=== PATIENT | male | born 1960 | race Caucasian/White ===

== ENCOUNTER 2018-08-06 14:47 | Inpatient (IN) ==
[2018-08-06] MEDS ORDERED: MethylPREDNISolone Sod Succinate Inj 125 MG/2 ML Vial IV.PUSH ONE (15:00)
[2018-08-06] MEDS ORDERED: RESP: Racemic Epinephrine 2.25% 0.5 ML Neb NEB ONE (15:04)
--- NOTE | 2018-08-06 15:09 | ED ---
HPI General Chief complaint: Dental/Oral Stated complaint: Swollen throat sent from urgent care Time Seen by Provider: 08/06/18 14:50 History of Present Illness HPI narrative: Patient is a 58-year-old male with no significant past medical history presented to the emergency room for sore throat, swollen thumb, unable to swallow saliva. Patient stated that 4 days ago had mild sore throat, did not take any medications. Yesterday was evaluated by physician and cefdinir given. Patient stated before she started taking antibiotic swollen difficult to swallow. Today patient feels that she is swelling and pain is worsens. Has mild drooling, unable to swallow saliva, tongue is swollen, unable to open wide. Patient complain of difficulty breathing not in respiratory distress at this time. Anesthesia and ENT called for consult. Related Data Home Medications Medication Instructions Recorded Confirmed cefdinir 300 mg PO Q12H 08/06/18 08/06/18 Allergies Allergy/AdvReac Type Severity Reaction Status Date / Time No Known Allergies Allergy Verified 08/06/18 15:20 Review of Systems ROS: all other systems reviewed are negative ENT Reports mouth pain, Reports sore throat, Reports throat swelling and Reports tongue swelling PMFSH Surgical History Surgical History No history of previous surgery (Acute) Social History Social History Substance History: No History of Abuse Second Hand Smoke Exposure: Yes Smoking Status: Current every day smoker Tobacco Type: Cigarettes How Often Do You Have a Drink Containing Alcohol: 2 to 3 times a week Recent Travel in [facility] within the Last 8 Weeks: No Recent Out of Country Travel within the Last 8 Weeks: No Exam Narrative Exam Narrative: GENERAL: 58-year-old male in mild respiratory distress. SKIN: Focused skin assessment warm/dry. HEAD: Atraumatic. Normocephalic. EYES: Pupils equal and round. No scleral icterus. No injection or drainage. ENT: Patient has sore throat, unable to visualize posterior oropharynx due to mobility of the patient to open the mouth, tongue is enlarged, patient has tenderness over his mandible and anterior neck. NECK: Trachea midline. No JVD. CARDIOVASCULAR: Regular rate and rhythm. No murmur appreciated. RESPIRATORY: No accessory muscle use. Clear to auscultation. Breath sounds equal bilaterally. GASTROINTESTINAL: Abdomen soft, non-tender, nondistended. Hepatic and splenic margins not palpable. MUSCULOSKELETAL: No obvious deformities. No clubbing. No cyanosis. No edema. NEUROLOGICAL: Awake and alert. No obvious cranial nerve deficits. Motor grossly within normal limits. Normal speech. PSYCHIATRIC: Appropriate mood and affect; insight and judgment normal. Course Initial Documented Vital Signs Temperature 99.3 F 08/06/18 14:55 Pulse Rate 107 H 08/06/18 14:55 Respiratory Rate 18 08/06/18 14:55 Blood Pressure 151/69 H 08/06/18 14:55 Pulse Oximetry 98 08/06/18 14:55 Last Documented Vital Signs Temperature 97.7 F 08/07/18 01:00 Pulse Rate 88 08/07/18 07:00 Respiratory Rate 22 08/07/18 07:00 Blood Pressure 119/60 08/07/18 07:00 Pulse Oximetry 95 08/07/18 07:00 Critical Care Time Critical Care Time: Yes Total Critical Care Time: 35 Attestation: Aggregate critical care time was [-] minutes. Time to perform other separately billable procedures was not included in the critical care time. My time did not include minutes spent treating any other patients simultaneously or on activities that did not directly contribute to the patient's treatment. The services I provided to this patient were to treat and/or prevent clinically significant deterioration that could result in: [-Please discuss with anesthesia and ENT, airway treatment with epinephrine , racemic epinephrine, Solu-Medrol given.] I provided critical care services requiring my management, as noted below: Chart data review, documentation time, medication orders and management, vital sign assessments/reviewing monitor data, ordering and reviewing lab tests, ordering and interpreting/reviewing x-rays and diagnostic studies, care of the patient and discussion of the patient with the admitting physicians. Sign Out Sign Out Data: Patient Sign Out occurred on 08/06/18 at 16:34. Patient's care was discussed, and care was transferred from Rishabh Almendarez DO to Michael Sanchez MD. Sign Out Comment: Patient is a 58-year-old male with no significant past medical history, presented to emergency room for tongue swelling, sore throat, mandible and anterior neck pain, drooling for 2 days. Patient barely can open his mouth, airway is patent at this time. Labs and CAT scans are pending, case was signed out to Dr. Sanchez for further evaluation and treatment. Last updated by Rishabh Almendarez DO at 08/06/18 16:04 Post-Handoff Eval: The patient was initially evaluated by the previous provider and signed out to me at around 4:00 PM at the beginning of my shift pending CT soft tissue neck and disposition. See his note for further details. This is a 58-year-old male who has had 4 days of worsening sore throat and swelling. Went to an urgent care facility yesterday and was started on an antibiotic for strep throat. Patient reported that his symptoms have not improved and actually worsened. On arrival the patient presented with significant tongue and pharyngeal edema with hoarse phonation and drooling. He was provided Solu-Medrol, IM epinephrine, racemic epinephrine, and clindamycin by the previous provider. He was also slightly tachycardic and has a low-grade fever. He was evaluated by the on-call anesthesiologist at the bedside who reports that she would be unable to intubate the patient. On my assessment the patient reports that the swelling feels slightly improved. He is sitting up in the stretcher and in no apparent distress. He does have significant tongue and sublingual edema with hoarse phonation. He is able to swallow some secretions, however he states it is painful. Labs reviewed by me shows slight leukocytosis of 15.8. CT soft tissue neck: CONCLUSION: 1. Asymmetry with increased soft tissue density in the left tonsillar fossa region. This area should be evaluated for possible mass. 2. Prominent lymph nodes around the upper parotid regions bilaterally being more prominent on the left. 3. Degenerative change in the cervical spine. Case discussed with software client architect Dr. Morris who will admit the patient to his service. Because the patient has a potential for airway compromise/ decompensation, he will be transported to the main hospital ICU. The patient was made aware of all findings and plan for emergent transport to our [facility]. Medical Decision Making MDM Narrative Medical decision making narrative: 1520: Labs, CAT scan ordered. Epinephrine, racemic epinephrine, Solu-Medrol is given. Patient was evaluated by anesthesia and bedside, at this time airway is patent with mild difficulty of breathing. Case discussed with Dr. Motley by phone, I ask him to evaluate the patient for possible tracheostomy. I was told that patient needs to have imaging and blood work done first. Medical Screen Exam Complete: Yes Emergency Medical Condition: Yes Lab Data Result diagrams: 08/07/18 04:10 08/07/18 04:10 Lab Results 08/06/18 08/06/18 08/06/18 Range/Units 15:00 15:00 15:00 CBC w Diff Auto diff final WBC 15.8 H (4.0-11.0) th/mm3 RBC 4.82 (4.50-5.90) mil/mm3 Hgb 14.7 (13.0-17.0) gm/dL Hct 43.2 (39.0-51.0) % MCV 89.6 (80.0-100.0) fL MCH 30.4 (27.0-34.0) pg MCHC 34.0 (32.0-36.0) % RDW 14.9 (11.6-17.2) % Plt Count 149 L (150-450) th/mm3 MPV 8.7 (7.0-11.0) fL Neut % (Auto) 76.0 H (16.0-70.0) % Lymph % (Auto) 10.9 (9.0-44.0) % [place] % (Auto) 12.8 H (0.0-8.0) % Eos % (Auto) 0.1 (0.0-4.0) % Baso % (Auto) 0.2 (0.0-2.0) % Neut # (Auto) 12.1 H (1.8-7.7) th/mm3 Lymph # (Auto) 1.7 (1.0-4.8) th/mm3 [place] # (Auto) 2.0 H (0.0-0.9) th/mm3 Eos # (Auto) 0.0 (0.0-0.4) th/mm3 Baso # (Auto) 0.0 (0.0-0.2) th/mm3 WBC Differential . Differential Comment . Puncture Site Patient Temperature O2 Saturation (90-100) % ABG pH (7.380-7.420) ABG pCO2 (38-42) mmHg ABG pO2 (61-120) mmHg ABG HCO3 (22-26) mmol/L ABG O2 Content (12.0-20.0) Vol % ABG Base Excess (-2-2) mmol/L ABG Methemoglobin (0-2) % David Test Hemoglobin (12.0-16.0) G/DL Carboxyhemoglobin (0-4) % O2 Delivery Device Liter Flow L/M Critical Value Sodium 137 (136-145) meq/L Potassium 3.4 L (3.5-5.1) meq/L Chloride 102 (98-107) meq/L Carbon Dioxide 28.7 (21.0-32.0) meq/L Anion Gap 6 (5-15) meq/L BUN 14 (7-18) mg/dL Creatinine 0.91 (0.60-1.30) mg/dL Estimated GFR 85 L (>89) mL/min POC Glucose (68-110) mg/dl Random Glucose 92 (74-106) mg/dL Lactic Acid 1.5 (0.4-2.0) mmol/L Calcium 9.2 (8.5-10.1) mg/dL Phosphorus (2.5-4.9) mg/dL Magnesium 2.0 (1.5-2.5) mg/dL Total Bilirubin 3.7 H (0.2-1.0) mg/dL AST 33 (15-37) U/L ALT 52 (12-78) U/L Alkaline Phosphatase 110 (45-117) U/L Total Protein 9.1 H (6.4-8.2) g/dL Albumin 3.8 (3.4-5.0) g/dL Urine Color (Yellw/Straw) Urine Clarity (Clear) Urine pH (5.0-8.5) Ur Specific [place] (1.002-1.035) Urine Protein (Neg-Trace) mg/dL Urine Glucose (UA) (Negative) mg/dL Urine Ketones (Negative) mg/dL Urine Occult Blood (Negative) Urine Nitrate (Negative) Urine Bilirubin (Negative) Urine Ictotest (Negative) Urine Urobilinogen (Less than 2) mg/dL Ur Leukocyte Esterase (Negative) Urine WBC (0-5) /hpf Ur Squamous Epith Cells (0-5) /hpf Hyaline Casts (0-3) /lpf Granular Casts (None) /lpf Micro UA Comment Ur Microscopic Review Urine Culture Comments Nasal Screen MRSA (PCR) (Negative) 08/06/18 08/06/18 08/06/18 Range/Units 15:10 15:55 17:15 CBC w Diff WBC (4.0-11.0) th/mm3 RBC (4.50-5.90) mil/mm3 Hgb (13.0-17.0) gm/dL Hct (39.0-51.0) % MCV (80.0-100.0) fL MCH (27.0-34.0) pg MCHC (32.0-36.0) % RDW (11.6-17.2) % Plt Count (150-450) th/mm3 MPV (7.0-11.0) fL Neut % (Auto) (16.0-70.0) % Lymph % (Auto) (9.0-44.0) % [place] % (Auto) (0.0-8.0) % Eos % (Auto) (0.0-4.0) % Baso % (Auto) (0.0-2.0) % Neut # (Auto) (1.8-7.7) th/mm3 Lymph # (Auto) (1.0-4.8) th/mm3 [place] # (Auto) (0.0-0.9) th/mm3 Eos # (Auto) (0.0-0.4) th/mm3 Baso # (Auto) (0.0-0.2) th/mm3 WBC Differential Differential Comment Puncture Site Right radial Patient Temperature 98.6 O2 Saturation 96 (90-100) % ABG pH 7.43 H (7.380-7.420) ABG pCO2 34 L (38-42) mmHg ABG pO2 101 (61-120) mmHg ABG HCO3 22 (22-26) mmol/L ABG O2 Content 19.8 (12.0-20.0) Vol % ABG Base Excess -1.5 (-2-2) mmol/L ABG Methemoglobin 1.2 (0-2) % David Test Present Hemoglobin 14.7 (12.0-16.0) G/DL Carboxyhemoglobin 1.5 (0-4) % O2 Delivery Device Nasal cannula Liter Flow 2.00 L/M Critical Value No Sodium (136-145) meq/L Potassium (3.5-5.1) meq/L Chloride (98-107) meq/L Carbon Dioxide (21.0-32.0) meq/L Anion Gap (5-15) meq/L BUN (7-18) mg/dL Creatinine (0.60-1.30) mg/dL Estimated GFR (>89) mL/min POC Glucose 91 (68-110) mg/dl Random Glucose (74-106) mg/dL Lactic Acid (0.4-2.0) mmol/L Calcium (8.5-10.1) mg/dL Phosphorus (2.5-4.9) mg/dL Magnesium (1.5-2.5) mg/dL Total Bilirubin (0.2-1.0) mg/dL AST (15-37) U/L ALT (12-78) U/L Alkaline Phosphatase (45-117) U/L Total Protein (6.4-8.2) g/dL Albumin (3.4-5.0) g/dL Urine Color Yellow (Yellw/Straw) Urine Clarity Clear (Clear) Urine pH 6.0 (5.0-8.5) Ur Specific [place] Less/equal 1.005 (1.002-1.035) Urine Protein Negative (Neg-Trace) mg/dL Urine Glucose (UA) Negative (Negative) mg/dL Urine Ketones 15 H (Negative) mg/dL Urine Occult Blood Negative (Negative) Urine Nitrate Negative (Negative) Urine Bilirubin Small H (Negative) Urine Ictotest Positive H (Negative) Urine Urobilinogen 4.0 H (Less than 2) mg/dL Ur Leukocyte Esterase Negative (Negative) Urine WBC 0-5 (0-5) /hpf Ur Squamous Epith Cells 0-5 (0-5) /hpf Hyaline Casts 11-30 H (0-3) /lpf Granular Casts 4-10 H (None) /lpf Micro UA Comment Culture not ind Ur Microscopic Review Microscopic reviewed Urine Culture Comments Culture not ind Nasal Screen MRSA (PCR) (Negative) 08/06/18 08/07/18 08/07/18 Range/Units 18:45 00:27 04:10 CBC w Diff WBC 5.7 D (4.0-11.0) th/mm3 RBC 4.06 L (4.50-5.90) mil/mm3 Hgb 12.7 L D (13.0-17.0) gm/dL Hct 36.1 L (39.0-51.0) % MCV 89.0 (80.0-100.0) fL MCH 31.2 (27.0-34.0) pg MCHC 35.1 (32.0-36.0) % RDW 15.2 (11.6-17.2) % Plt Count 102 L D (150-450) th/mm3 MPV 8.7 (7.0-11.0) fL Neut % (Auto) 86.7 H (16.0-70.0) % Lymph % (Auto) 9.3 (9.0-44.0) % [place] % (Auto) 3.9 (0.0-8.0) % Eos % (Auto) 0.0 (0.0-4.0) % Baso % (Auto) 0.1 (0.0-2.0) % Neut # (Auto) 5.0 (1.8-7.7) th/mm3 Lymph # (Auto) 0.5 L (1.0-4.8) th/mm3 [place] # (Auto) 0.2 (0.0-0.9) th/mm3 Eos # (Auto) 0.0 (0.0-0.4) th/mm3 Baso # (Auto) 0.0 (0.0-0.2) th/mm3 WBC Differential . Differential Comment Auto diff final Puncture Site Patient Temperature O2 Saturation (90-100) % ABG pH (7.380-7.420) ABG pCO2 (38-42) mmHg ABG pO2 (61-120) mmHg ABG HCO3 (22-26) mmol/L ABG O2 Content (12.0-20.0) Vol % ABG Base Excess (-2-2) mmol/L ABG Methemoglobin (0-2) % David Test Hemoglobin (12.0-16.0) G/DL Carboxyhemoglobin (0-4) % O2 Delivery Device Liter Flow L/M Critical Value Sodium (136-145) meq/L Potassium (3.5-5.1) meq/L Chloride (98-107) meq/L Carbon Dioxide (21.0-32.0) meq/L Anion Gap (5-15) meq/L BUN (7-18) mg/dL Creatinine (0.60-1.30) mg/dL Estimated GFR (>89) mL/min POC Glucose 165 H (68-110) mg/dl Random Glucose (74-106) mg/dL Lactic Acid (0.4-2.0) mmol/L Calcium (8.5-10.1) mg/dL Phosphorus (2.5-4.9) mg/dL Magnesium (1.5-2.5) mg/dL Total Bilirubin (0.2-1.0) mg/dL AST (15-37) U/L ALT (12-78) U/L Alkaline Phosphatase (45-117) U/L Total Protein (6.4-8.2) g/dL Albumin (3.4-5.0) g/dL Urine Color (Yellw/Straw) Urine Clarity (Clear) Urine pH (5.0-8.5) Ur Specific [place] (1.002-1.035) Urine Protein (Neg-Trace) mg/dL Urine Glucose (UA) (Negative) mg/dL Urine Ketones (Negative) mg/dL Urine Occult Blood (Negative) Urine Nitrate (Negative) Urine Bilirubin (Negative) Urine Ictotest (Negative) Urine Urobilinogen (Less than 2) mg/dL Ur Leukocyte Esterase (Negative) Urine WBC (0-5) /hpf Ur Squamous Epith Cells (0-5) /hpf Hyaline Casts (0-3) /lpf Granular Casts (None) /lpf Micro UA Comment Ur Microscopic Review Urine Culture Comments Nasal Screen MRSA (PCR) Not detected (Negative) 08/07/18 Range/Units 04:10 CBC w Diff WBC (4.0-11.0) th/mm3 RBC (4.50-5.90) mil/mm3 Hgb (13.0-17.0) gm/dL Hct (39.0-51.0) % MCV (80.0-100.0) fL MCH (27.0-34.0) pg MCHC (32.0-36.0) % RDW (11.6-17.2) % Plt Count (150-450) th/mm3 MPV (7.0-11.0) fL Neut % (Auto) (16.0-70.0) % Lymph % (Auto) (9.0-44.0) % [place] % (Auto) (0.0-8.0) % Eos % (Auto) (0.0-4.0) % Baso % (Auto) (0.0-2.0) % Neut # (Auto) (1.8-7.7) th/mm3 Lymph # (Auto) (1.0-4.8) th/mm3 [place] # (Auto) (0.0-0.9) th/mm3 Eos # (Auto) (0.0-0.4) th/mm3 Baso # (Auto) (0.0-0.2) th/mm3 WBC Differential Differential Comment Puncture Site Patient Temperature O2 Saturation (90-100) % ABG pH (7.380-7.420) ABG pCO2 (38-42) mmHg ABG pO2 (61-120) mmHg ABG HCO3 (22-26) mmol/L ABG O2 Content (12.0-20.0) Vol % ABG Base Excess (-2-2) mmol/L ABG Methemoglobin (0-2) % David Test Hemoglobin (12.0-16.0) G/DL Carboxyhemoglobin (0-4) % O2 Delivery Device Liter Flow L/M Critical Value Sodium 142 (136-145) meq/L Potassium 3.5 (3.5-5.1) meq/L Chloride 110 H D (98-107) meq/L Carbon Dioxide 25.8 (21.0-32.0) meq/L Anion Gap 6 (5-15) meq/L BUN 17 (7-18) mg/dL Creatinine 0.73 (0.60-1.30) mg/dL Estimated GFR Greater than 89 (>89) mL/min POC Glucose (68-110) mg/dl Random Glucose 177 H (74-106) mg/dL Lactic Acid (0.4-2.0) mmol/L Calcium 8.5 (8.5-10.1) mg/dL Phosphorus 2.3 L (2.5-4.9) mg/dL Magnesium 2.1 (1.5-2.5) mg/dL Total Bilirubin 1.4 H (0.2-1.0) mg/dL AST 22 (15-37) U/L ALT 40 (12-78) U/L Alkaline Phosphatase 86 (45-117) U/L Total Protein 7.6 D (6.4-8.2) g/dL Albumin 3.0 L D (3.4-5.0) g/dL Urine Color (Yellw/Straw) Urine Clarity (Clear) Urine pH (5.0-8.5) Ur Specific [place] (1.002-1.035) Urine Protein (Neg-Trace) mg/dL Urine Glucose (UA) (Negative) mg/dL Urine Ketones (Negative) mg/dL Urine Occult Blood (Negative) Urine Nitrate (Negative) Urine Bilirubin (Negative) Urine Ictotest (Negative) Urine Urobilinogen (Less than 2) mg/dL Ur Leukocyte Esterase (Negative) Urine WBC (0-5) /hpf Ur Squamous Epith Cells (0-5) /hpf Hyaline Casts (0-3) /lpf Granular Casts (None) /lpf Micro UA Comment Ur Microscopic Review Urine Culture Comments Nasal Screen MRSA (PCR) (Negative) Imaging Data Radiologist's impression: Chest X-Ray 08/06/18 14:58 CONCLUSION: 1. No acute abnormality or significant interval change. Soft Tissue Neck CT 08/06/18 15:02 CONCLUSION: 1. Asymmetry with increased soft tissue density in the left tonsillar fossa region. This area should be evaluated for possible mass. 2. Prominent lymph nodes around the upper parotid regions bilaterally being more prominent on the left. 3. Degenerative change in the cervical spine. Discharge Plan Discharge Disposition Patient Disposition: ED Admit(ED Internal Use Only) Discharge Condition Condition: Fair Discharge Order Discharge Orders: ED Use Only Admit Order (Routine); Ordered 08/06/18 Ordered By: Michael Sanchez Discharge Details Diagnosis: Pharyngitis, Angioedema Physicians Team ED Provider: Michael Sanchez Primary Care Provider: Primary Care Amarilis,Kerry Attending Provider: Deuce Morris Other Providers: Ramirez Motley ; Pari Díaz Status ED Status: Left Department Discharge Information Discharge Date/Time: 08/06/18 18:09
[2018-08-06] MEDS ORDERED: Sod Chloride 0.9% Inj 1,000 ML IV.SIG SCH (15:15)
[2018-08-06 15:16] LABS: ABG Base Excess -1.5 mmol/L (-2-2); ABG PCO2 34 mmHg (38-42); ABG PO2 101 mmHg (61-120)
[2018-08-06 15:18] LABS: Baso % (Auto) 0.2 % (0.0-2.0); Eos % (Auto) 0.1 % (0.0-4.0); Hematocrit 43.2 % (39.0-51.0); Hemoglobin 14.7 gm/dL (13.0-17.0); Lymph # (Auto) 1.7 th/mm3 (1.0-4.8); Lymph % (Auto) 10.9 % (9.0-44.0); Mean Corpuscular Hemoglobin 30.4 pg (27.0-34.0); Mean Corpuscular Volume 89.6 fL (80.0-100.0); Mean Platelet Volume 8.7 fL (7.0-11.0); Mono % (Auto) 12.8 % (0.0-8.0); Neut # (Auto) 12.1 th/mm3 (1.8-7.7); Platelet Count 149 th/mm3 (150-450); Red Blood Count 4.82 mil/mm3 (4.50-5.90); Red Cell Distribution Width 14.9 % (11.6-17.2); White Blood Count 15.8 th/mm3 (4.0-11.0)
[2018-08-06 15:26] LABS: Chloride 102 meq/L (98-107); Potassium 3.4 meq/L (3.5-5.1); Sodium 137 meq/L (136-145)
[2018-08-06 15:29] LABS: Albumin 3.8 g/dL (3.4-5.0); Anion Gap 6 meq/L (5-15); Calcium 9.2 mg/dL (8.5-10.1); Carbon Dioxide 28.7 meq/L (21.0-32.0)
[2018-08-06 15:30] LABS: Blood Urea Nitrogen 14 mg/dL (7-18); Glucose,Random 92 mg/dL (74-106)
--- NOTE | 2018-08-06 15:32 | XR ---
EXAM DATE: 08/06/2018 3:19 PM EST AGE/SEX: 58 years / Male INDICATIONS: Sore throat x 2-3 days but throat is swollen today & unable to swallow saliva. CLINICAL DATA: This is the patient's initial encounter. Patient reports that signs and symptoms have been present for 3 days and indicates a pain score of 0/10. MEDICAL/SURGICAL HISTORY: . Unable to obtain. . Unable to obtain. COMPARISON: [facility] [place], 08/13/2015. . FINDINGS: No new focal pleural or parenchymal opacities. The cardiomediastinal contours are unremarkable. Osse ous structures are intact. CONCLUSION: 1. No acute abnormality or significant interval change. Electronically signed by: Edison Galvez MD 08/06/2018 3:31 PM EST
[2018-08-06 15:33] LABS: Alanine Aminotransferase 52 U/L (12-78); Aspartate Aminotransferase 33 U/L (15-37); Glomerular Filtration Rate 85 mL/min (>89)
[2018-08-06 15:34] LABS: Total Protein 9.1 g/dL (6.4-8.2)
[2018-08-06 15:35] LABS: Alkaline Phosphatase 110 U/L (45-117)
--- NOTE | 2018-08-06 16:54 | CT ---
EXAM DATE: 08/06/2018 4:45 PM EST AGE/SEX: 58 years / Male INDICATIONS: Swollen throat. CLINICAL DATA: This is the patient's initial encounter. Patient reports that signs and symptoms have been present for 4 - 6 days and indicates a pain score of 0/10. MEDICAL/SURGICAL HISTORY: None. None. RADIATION DOSE: 11.97 CTDI (mGy) COMPARISON: No prior exams available for comparison. TECHNIQUE: Helical acquisition was performed using a multirow detector CT scanner during the adminis tration of 75 ml Omnipaque 350 (iohexol) nonionic water-soluble contrast as a single exam dose. Usi ng automated exposure control and adjustment of the mA and/or kV according to patient size, radiation dose was kept as low as reasonably achievable to obtain optimal diagnostic quality images. DICOM fo rmat image data is available electronically for review and comparison. FINDINGS: Nasopharynx: The nasopharyngeal airway has a normal configuration. No mucosal thickening or mass is seen. Oropharynx: There is asymmetry with increased soft tissue density in the left tonsillar fossa region . This area should be directly inspected. Larynx: The supraglottic, glottic, and infraglottic structures are intact. Parapharyngeal: The parapharyngeal space is intact. Salivary Glands: The parotid and submandibular glands are intact. Lymph Nodes: A mildly prominent lymph nodes are seen around the upper parotid regions bilaterally b eing somewhat more prominent on the left. The most prominent lymph node is seen in the left digastri c region measuring 1.0 x 0.8 cm. Thyroid: Homogeneous enhancement without evidence of nodule. Bones: Degenerative change in the cervical spine. CONCLUSION: 1. Asymmetry with increased soft tissue density in the left tonsillar fossa region. This area should be evaluated for possible mass. 2. Prominent lymph nodes around the upper parotid regions bilaterally being more prominent on the le ft. 3. Degenerative change in the cervical spine. Electronically signed by: John Joshi MD 08/06/2018 4:53 PM EST
[2018-08-06 17:21] LABS: Clarity,Urine Clear (Clear); Color,Urine Yellow (Yellw/Straw); Glucose,Urine (UA) Negative (Negative); Leukocyte Esterase,Urine Negative (Negative); Nitrite,Urine Negative (Negative); Specific Gravity,Urine Less/Equal 1.005 (1.002-1.035)
[2018-08-06 17:47] LABS: Bilirubin,Urine Small (Negative); Ictotest,Urine Positive (Negative)
[2018-08-06 17:48] LABS: Squamous Epithelial Cell,Urine 0-5 /hpf (0-5); WBC,Urine 0-5 /hpf (0-5)
[2018-08-06] MEDS ORDERED: Bisacodyl 10 MG Supp RECTAL PRN (19:46)
[2018-08-06] MEDS ORDERED: Magnesium Sulfate Inj 2 GM in Sodium Chlor 0.9% Inj 96 ML IV.SIG PRN (19:49)
[2018-08-06] MEDS ORDERED: Potassium Chloride 25 MEQ Effervescent Tablet PO PRN (19:49)
[2018-08-06] MEDS ORDERED: Potassium Phosphate Inj 30 MMOL in Sodium Chlor 0.9% Inj 250 ML IV.SIG PRN (19:49)
[2018-08-06] MEDS ORDERED: Potassium Chlor 20 mEq Premix 20 MEQ/100 ML PIGGYBACK IV.SIG PRN ×2 (19:49)
[2018-08-06] MEDS ORDERED: Magnesium Sulfate Inj 4 GM in Sodium Chlor 0.9% Inj 92 ML IV.SIG PRN (19:49)
[2018-08-06] MEDS ORDERED: Potassium Chlor 40 mEq Premix 40 MEQ/100 ML PIGGYBACK IV.SIG PRN ×2 (19:49)
[2018-08-06] MEDS ORDERED: Sodium Phosphate Inj 30 MMOL in Sodium Chlor 0.9% Inj 250 ML IV.SIG PRN (19:49)
[2018-08-06] MEDS ORDERED: Potassium Phosphate 500 MG Soluble Tablet PO PRN ×2 (19:49)
[2018-08-06] MEDS ORDERED: Magnesium Oxide 400 MG Tablet PO PRN (19:49)
[2018-08-06] MEDS ORDERED: Dextrose 50% in Water 50 ML Vial IV.PUSH PRN (20:04)
[2018-08-06] MEDS: Ampicillin/Sulbactam Inj 1,500 MG in Sodium Chloride 0.9% Inj 100 ML IV.SIG SCH (21:12)
[2018-08-06] MEDS: Dextrose 5%/NaCl 0.9% Inj 1,000 ML IV.CONT SCH (21:13)
--- NOTE | 2018-08-06 21:31 | ECG ---
Date Performed: 08/06/2018 Time Performed: 15:23:35 PTAGE: 58 years EKG: Sinus rhythm WITH SHORT GA INTERVAL BORDERLINE ECG PREVIOUS TRACING : 08/02/2015 04.00 Compared to previous tracing, ST changes resolved DOCTOR: Eze Phelan Interpretating Date/Time 08/06/2018 21:30:49
--- NOTE | 2018-08-06 21:35 | MH ---
cc: Justice Paul MD DATE OF ADMISSION: 08/06/2018 HISTORY OF PRESENT ILLNESS: The patient is a 58-year-old, without significant past medical history who initially presented to [place] ED with sore throat that started on Sunday and progressively worsened. The patient took NyQuil without any effects. He also noticed swelling of the tongue, which started Sunday, and voice changes. He also reports shortness of breath and wheezing associated with his symptoms. He is not on any medications at home. He denies any exposure to sick contacts. He denies any chest pain, orthopnea, PND, or edema in lower extremities. Also denies any nausea, vomiting or abdominal pain. The patient was given Cefdinir. He was noted to have mild drooling and was unable to swallow his saliva due to swelling of his tongue. A chest x-ray was obtained, which showed no acute abnormalities. He also had a soft tissue neck CT which showed asymmetry with increased soft tissue density in the left tonsillar fossa region and prominent lymph nodes around the upper parotid regions, in addition to degenerative changes in the cervical spine. There is no evidence of any fever; however, he had a white count of 15.8. The patient was transferred to [facility]. When seen, he was on room air oxygen. His current blood pressure is 114/71 with a pulse of 84. PAST MEDICAL HISTORY: The patient denies any history of hypertension, diabetes mellitus. PAST SURGICAL HISTORY: Unremarkable. SOCIAL HISTORY: He smokes cigarettes, 1 pack a week for 30 years. In addition, he drinks twice a week. ALLERGIES: NO KNOWN DRUG ALLERGIES. MEDICATIONS AT HOME: None. FAMILY HISTORY: Father at age 82 with leukemia. REVIEW OF SYSTEMS: As per HPI. The rest of his review of systems is unremarkable. PHYSICAL EXAMINATION: GENERAL: A 58-year-old male lying in bed, in no acute respiratory distress. VITAL SIGNS: Temperature 99.3, pulse of 84, blood pressure 114/71, saturation 97% on room air. HEENT: Atraumatic, normocephalic. Pupils are equal, round that light and accommodation. Extraocular muscles intact. Conjunctivae pink. Nonicteric sclerae. Oral mucosa within normal. The patient has difficulty opening his mouth wide. The tongue is enlarged and has tenderness over his mandible and anterior neck. NECK: Supple. No JVD, adenopathy or thyromegaly. Trachea in the midline. CARDIAC: Regular rate and rhythm. Normal S1, S2. No murmurs, rubs or gallops noted. PULMONARY: Bilaterally good air entry. No rales or wheezing. ABDOMEN: Soft, nontender, nondistended, positive bowel sounds. EXTREMITIES: No cyanosis, clubbing, edema. NEUROLOGIC: No focal sensory deficit. LABORATORY DATA: Sodium 137, potassium 3.4, chloride 102, CO2 28, BUN 14, creatinine 0.91, glucose of 91. Lactic acid 1.5. AST 33, ALT 52, total bilirubin 3.7, albumin 3.8. Chest x-ray showed no acute abnormalities. Soft tissue neck CT showed asymmetry with increased soft tissue density in the left tonsillar fossa region and prominent lymph nodes around the upper parotid regions bilaterally. IMPRESSION: 1. Angioedema. 2. Asymmetry with increased soft tissue density in the left tonsillar fossa region. 3. Leukocytosis. 4. Hypokalemia. RECOMMENDATIONS: 1. To monitor neuro status closely and avoid any sedatives. 2. Oxygen to maintain sats above 92%. 3. Bronchodilators in the form of DuoNeb every 4 hours plus every 2 hours p.r.n. for shortness of breath. 4. Patient was evaluated by Anesthesia at [place]. In addition, Dr. Majano from ENT was notified by the ED physician. 4. Monitor airway closely and place on Decadron 4 mg IV every 6 hours. 5. Pepcid 20 mg IV every 12 hours. 6. If there is any clinical deterioration, we will proceed with intubation and mechanical ventilation. 7. An ENT evaluation for laryngoscopy and possible biopsy. 8. Monitor heart rate, blood pressure, and maintain MAP greater than 65 mmHg. 9. Monitor renal function, I's and O's and electrolyte replacement per protocol. The patient will need potassium replacement for potassium 3.4. 10. Place on IV fluids, D5 normal saline at 84 mL an hour. 11. Place on empiric antibiotics in the form of Unasyn and monitor for signs of infection, which include fever and WBC. Follow up on blood cultures. 12. Keep n.p.o. for now, and continue with Pepcid 20 mg IV every 12 hours. 13. Sliding scale insulin if needed for glycemic control. 14. Gastrointestinal prophylaxis with Pepcid and DVT prophylaxis with SCDs. 15. Further recommendations will be based on hospital course. MD BILL Brown/rowena , 08:03 PM , 08:16 PM
--- NOTE | 2018-08-06 21:50 | MB ---
cc: Ramirez Motley MD DATE: 08/06/2018 CHIEF COMPLAINT: Dysphagia. HISTORY OF PRESENT ILLNESS: This is a 58-year-old male who presented to the emergency room this afternoon complaining of a 4-day onset of sore throat, unable to tolerate his saliva, with significant pain upon trying to swallow. He was started on IV antibiotics. However, upon my questioning to him, he first noted his sore throat approximately 4 months ago. He had been having a difficult time swallowing for the last month and a half, it has continued to worsen and only over the last few days had it gotten to the point where he was unable to tolerate his secretions and started drooling. He is denying any difficulty breathing. He does report over the last month, his friends have told him that they feel like he is a little louder breather. Of note, the patient does go through a case of beer when he is off from work, he said, and then just drinks a few beers during his work week every day. REVIEW OF SYSTEMS: As per above. PAST MEDICAL HISTORY: Significant for gout, as well as a previous history of spinal meningitis. ALLERGIES: He has no previous surgical history. SOCIAL HISTORY: Daily alcohol use as well as 1 pack per day smoking. PHYSICAL EXAMINATION: GENERAL: The patient is alert and oriented. He is in no acute distress. He does have some difficulty with speaking. Has a hot potato style voice. HEENT: The patient has a enlarged tongue with some fullness to the floor of his mouth. No purulence noted in the floor of the mouth. He has some poor dentition. The tongue is somewhat soft and mobile. The tongue base is very firm with a large firm area and a hard mass appearing to the left base of tongue. Flexible laryngoscopy reveals a patent airway with an exophytic mass in the base of tongue, as well as the epiglottis. No impingement on the airway. NECK: Exam reveals no palpable lymphadenopathy. HEART: Regular rate and rhythm. LUNGS: Clear to auscultation. DIAGNOSTIC DATA: CT scan reviewed. Shows an asymmetric left oropharyngeal mass with significant lymphadenopathy bilaterally, but larger on the left, and the second lymph node in the level 2 lymph node chain. ASSESSMENT AND PLAN: The patient with an oropharyngeal mass as well as lymphadenopathy. This area looks concerning for malignancy, due to the indolent nature of the mass. However, he does have a white count today that does seem that he has a superimposed infection on this process as well. I would recommend IV antibiotics, ultrasound-guided biopsy of the left neck mass, as well as a consultation with general surgery for possible tracheostomy to secure his airway better should this mass continue to enlarge, as well as an infectious disease was consulted for possible onset of Ulysses's angina, as well as Intensive Care Unit monitoring. Thank you for this consultation. Ramirez Motley MD ATT/rowena , 08:49 PM , 08:57 PM
[2018-08-07] MEDS: Ampicillin/Sulbactam Inj 1,500 MG in Sodium Chloride 0.9% Inj 100 ML IV.SIG SCH ×4 (03:44→20:01)
[2018-08-07] MEDS: Insulin NovoLIN Regular Correctional Sugar Inj SQ SCH ×4 (03:45→18:59)
[2018-08-07] MEDS: Famotidine PF Inj 20 MG/2 ML Vial IV.PUSH SCH ×3 (03:45→20:00)
[2018-08-07] MEDS ORDERED: Chlorhexidine Gluconate 2% 1 Pack (2 Cloths) TOPICAL PRN ×2 (04:00)
[2018-08-07 04:39] LABS: Baso % (Auto) 0.1 % (0.0-2.0); Hematocrit 36.1 % (39.0-51.0); Hemoglobin 12.7 gm/dL (13.0-17.0); Lymph # (Auto) 0.5 th/mm3 (1.0-4.8); Lymph % (Auto) 9.3 % (9.0-44.0); Mean Corpuscular HGB Conc 35.1 % (32.0-36.0); Mean Corpuscular Hemoglobin 31.2 pg (27.0-34.0); Mean Platelet Volume 8.7 fL (7.0-11.0); Mono # (Auto) 0.2 th/mm3 (0.0-0.9); Mono % (Auto) 3.9 % (0.0-8.0); Neut % (Auto) 86.7 % (16.0-70.0); Platelet Count 102 th/mm3 (150-450); Red Blood Count 4.06 mil/mm3 (4.50-5.90); Red Cell Distribution Width 15.2 % (11.6-17.2); White Blood Count 5.7 th/mm3 (4.0-11.0)
[2018-08-07 04:55] LABS: Anion Gap 6 meq/L (5-15); Aspartate Aminotransferase 22 U/L (15-37); Blood Urea Nitrogen 17 mg/dL (7-18); Calcium 8.5 mg/dL (8.5-10.1); Carbon Dioxide 25.8 meq/L (21.0-32.0); Chloride 110 meq/L (98-107); Glomerular Filtration Rate Greater Than 89 mL/min (>89); Glucose,Random 177 mg/dL (74-106); Magnesium 2.1 mg/dL (1.5-2.5); Potassium 3.5 meq/L (3.5-5.1); Sodium 142 meq/L (136-145)
[2018-08-07 04:58] LABS: Alanine Aminotransferase 40 U/L (12-78); Alkaline Phosphatase 86 U/L (45-117); Phosphorus 2.3 mg/dL (2.5-4.9); Total Protein 7.6 g/dL (6.4-8.2)
--- NOTE | 2018-08-07 07:48 | P.PNCC ---
Subjective Subjective Remarks/Hospital Course: 08/07: Afebrile .Leukocytosis resolved. Patient expresses better control of saliva this morning, however still noted significant airway edema with voice changes. Patient remains n.p.o.. Objective Vital Signs / I&O: Vital Signs 08/06/18 14:55 08/06/18 15:00 08/06/18 15:17 Temperature 99.3 F Pulse Rate 107 H 99 H 100 H Respiratory Rate 18 19 Blood Pressure 151/69 H Pulse Oximetry 98 98 08/06/18 15:33 08/06/18 15:51 08/06/18 17:12 Temperature Pulse Rate 101 H 97 H 92 H Respiratory Rate 18 18 16 Blood Pressure 139/70 128/66 118/69 Pulse Oximetry 98 97 96 08/06/18 19:45 08/06/18 20:00 08/06/18 20:31 Temperature 98.2 F Pulse Rate 85 86 82 Respiratory Rate 25 H 27 H 18 Blood Pressure 116/77 Pulse Oximetry 97 96 99 08/06/18 21:00 08/06/18 22:00 08/06/18 23:00 Temperature Pulse Rate 88 84 79 Respiratory Rate 26 H 20 24 Blood Pressure 118/70 115/67 100/57 L Pulse Oximetry 96 94 L 95 08/07/18 00:00 08/07/18 00:02 08/07/18 01:00 Temperature 98.2 F 97.7 F Pulse Rate 76 79 84 Respiratory Rate 23 20 29 H Blood Pressure 125/71 120/64 Pulse Oximetry 97 98 08/07/18 02:00 08/07/18 03:00 08/07/18 03:51 Temperature Pulse Rate 73 69 89 Respiratory Rate 16 14 16 Blood Pressure 95/54 L 107/57 L Pulse Oximetry 93 L 96 08/07/18 04:00 08/07/18 05:00 08/07/18 06:00 Temperature Pulse Rate 78 82 79 Respiratory Rate 21 20 16 Blood Pressure 129/65 107/59 L 133/62 Pulse Oximetry 100 90 L 94 L 08/07/18 07:00 Temperature Pulse Rate 88 Respiratory Rate 22 Blood Pressure 119/60 Pulse Oximetry 95 Intake & Output 08/06/18 08/07/18 08/07/18 18:59 06:59 18:59 Intake Total 1104 / 1104 738 / 738 Output Total 350 / 350 Balance 1104 / 1104 388 / 388 Weight 78.4 kg 62 kg Intake: IV 1103 / 4 100 / 100 Unasyn Inj 1,500 MG In NS Inj 100 / 100 100 ML @ 200 mls/hr IV.SIG Q6H JAY Rx#:[id number] Cleocin Inj 600 MG In NS Inj 104 / 104 100 ML @ 200 mls/hr IV.SIG STAT STA Rx#:[id number] NS Inj 1,000 ML @ 1000 mls/hr 1000 / 1000 IV.SIG BOLUS JAY Rx#:[id number] Other 638 / 638 Output: Urine 350 / 350 Result Diagrams: 08/07/18 04:10 08/07/18 04:10 Other Results: Laboratory Results CBC w Diff Auto diff final 08/06/18 15:00 WBC 5.7 th/mm3 (4.0-11.0) D 08/07/18 04:10 RBC 4.06 mil/mm3 (4.50-5.90) L 08/07/18 04:10 Hgb 12.7 gm/dL (13.0-17.0) L D 08/07/18 04:10 Hct 36.1 % (39.0-51.0) L 08/07/18 04:10 MCV 89.0 fL (80.0-100.0) 08/07/18 04:10 MCH 31.2 pg (27.0-34.0) 08/07/18 04:10 MCHC 35.1 % (32.0-36.0) 08/07/18 04:10 RDW 15.2 % (11.6-17.2) 08/07/18 04:10 Plt Count 102 th/mm3 (150-450) L D 08/07/18 04:10 MPV 8.7 fL (7.0-11.0) 08/07/18 04:10 Neut % (Auto) 86.7 % (16.0-70.0) H 08/07/18 04:10 Lymph % (Auto) 9.3 % (9.0-44.0) 08/07/18 04:10 [place] % (Auto) 3.9 % (0.0-8.0) 08/07/18 04:10 Eos % (Auto) 0.0 % (0.0-4.0) 08/07/18 04:10 Baso % (Auto) 0.1 % (0.0-2.0) 08/07/18 04:10 Neut # (Auto) 5.0 th/mm3 (1.8-7.7) 08/07/18 04:10 Lymph # (Auto) 0.5 th/mm3 (1.0-4.8) L 08/07/18 04:10 [place] # (Auto) 0.2 th/mm3 (0.0-0.9) 08/07/18 04:10 Eos # (Auto) 0.0 th/mm3 (0.0-0.4) 08/07/18 04:10 Baso # (Auto) 0.0 th/mm3 (0.0-0.2) 08/07/18 04:10 WBC Differential . 08/07/18 04:10 Differential Comment Auto diff final 08/07/18 04:10 Puncture Site Right radial 08/06/18 15:10 Patient Temperature 98.6 08/06/18 15:10 O2 Saturation 96 % (90-100) 08/06/18 15:10 ABG pH 7.43 (7.380-7.420) H 08/06/18 15:10 ABG pCO2 34 mmHg (38-42) L 08/06/18 15:10 ABG pO2 101 mmHg (61-120) 08/06/18 15:10 ABG HCO3 22 mmol/L (22-26) 08/06/18 15:10 ABG O2 Content 19.8 Vol % (12.0-20.0) 08/06/18 15:10 ABG Base Excess -1.5 mmol/L (-2-2) 08/06/18 15:10 ABG Methemoglobin 1.2 % (0-2) 08/06/18 15:10 David Test Present 08/06/18 15:10 Hemoglobin 14.7 G/DL (12.0-16.0) 08/06/18 15:10 Carboxyhemoglobin 1.5 % (0-4) 08/06/18 15:10 O2 Delivery Device Nasal cannula 08/06/18 15:10 Liter Flow 2.00 L/M 08/06/18 15:10 Critical Value No 08/06/18 15:10 Sodium 142 meq/L (136-145) 08/07/18 04:10 Potassium 3.5 meq/L (3.5-5.1) 08/07/18 04:10 Chloride 110 meq/L (98-107) H D 08/07/18 04:10 Carbon Dioxide 25.8 meq/L (21.0-32.0) 08/07/18 04:10 Anion Gap 6 meq/L (5-15) 08/07/18 04:10 BUN 17 mg/dL (7-18) 08/07/18 04:10 Creatinine 0.73 mg/dL (0.60-1.30) 08/07/18 04:10 Estimated GFR Greater than 89 mL/min (>89) 08/07/18 04:10 POC Glucose 165 mg/dl (68-110) H 08/07/18 00:27 Random Glucose 177 mg/dL (74-106) H 08/07/18 04:10 Lactic Acid 1.5 mmol/L (0.4-2.0) 08/06/18 15:00 Calcium 8.5 mg/dL (8.5-10.1) 08/07/18 04:10 Phosphorus 2.3 mg/dL (2.5-4.9) L 08/07/18 04:10 Magnesium 2.1 mg/dL (1.5-2.5) 08/07/18 04:10 Total Bilirubin 1.4 mg/dL (0.2-1.0) H 08/07/18 04:10 AST 22 U/L (15-37) 08/07/18 04:10 ALT 40 U/L (12-78) 08/07/18 04:10 Alkaline Phosphatase 86 U/L (45-117) 08/07/18 04:10 Total Protein 7.6 g/dL (6.4-8.2) D 08/07/18 04:10 Albumin 3.0 g/dL (3.4-5.0) L D 08/07/18 04:10 Urine Color Yellow (Yellw/Straw) 08/06/18 17:15 Urine Clarity Clear (Clear) 08/06/18 17:15 Urine pH 6.0 (5.0-8.5) 08/06/18 17:15 Ur Specific [place] Less/equal 1.005 (1.002-1.035) 08/06/18 17:15 Urine Protein Negative mg/dL (Neg-Trace) 08/06/18 17:15 Urine Glucose (UA) Negative mg/dL (Negative) 08/06/18 17:15 Urine Ketones 15 mg/dL (Negative) H 08/06/18 17:15 Urine Occult Blood Negative (Negative) 08/06/18 17:15 Urine Nitrate Negative (Negative) 08/06/18 17:15 Urine Bilirubin Small (Negative) H 08/06/18 17:15 Urine Ictotest Positive (Negative) H 08/06/18 17:15 Urine Urobilinogen 4.0 mg/dL (Less than 2) H 08/06/18 17:15 Ur Leukocyte Esterase Negative (Negative) 08/06/18 17:15 Urine WBC 0-5 /hpf (0-5) 08/06/18 17:15 Ur Squamous Epith Cells 0-5 /hpf (0-5) 08/06/18 17:15 Hyaline Casts 11-30 /lpf (0-3) H 08/06/18 17:15 Granular Casts 4-10 /lpf (None) H 08/06/18 17:15 Micro UA Comment Culture not ind 08/06/18 17:15 Ur Microscopic Review Microscopic reviewed 08/06/18 17:15 Urine Culture Comments Culture not ind 08/06/18 17:15 Nasal Screen MRSA (PCR) Not detected (Negative) 08/06/18 18:45 Impressions Chest X-Ray 08/06/18 14:58 CONCLUSION: 1. No acute abnormality or significant interval change. Soft Tissue Neck CT 08/06/18 15:02 CONCLUSION: 1. Asymmetry with increased soft tissue density in the left tonsillar fossa region. This area should be evaluated for possible mass. 2. Prominent lymph nodes around the upper parotid regions bilaterally being more prominent on the left. 3. Degenerative change in the cervical spine. Objective Remarks: GENERAL: This is a well-developed well-nourished male of average stated age, in no acute distress SKIN: Warm and dry. HEAD: Atraumatic. Normocephalic. EYES: Pupils equal and round. No scleral icterus. No injection or drainage. ENT: No nasal bleeding or discharge. Mucous membranes pink and moist. NECK: Trachea midline. No JVD. Left-sided swelling CARDIOVASCULAR: Normal rate, regular rhythm. RESPIRATORY: No accessory muscle use. Clear to auscultation. Breath sounds equal bilaterally. GASTROINTESTINAL: Abdomen soft, non-tender, nondistended. No guarding. MUSCULOSKELETAL: Extremities without clubbing, cyanosis, or edema. No obvious deformities. NEUROLOGICAL: Awake and alert. RASS 0. No gross focal/sensory deficits. Follows commands in all 4 extremities. Assessment and Plan - Assessment and Plan Plan: Plan by systems: Neurologic: Pain History of alcohol use Neuro checks per ICU protocol Monitor for signs of alcohol withdrawal Seizure precautions Tylenol elixir 650 mg every 6 hours as needed for moderate pain Avoidance of narcotics /sedatives to maintain airway Respiratory: Angioedema Airway compromise Maintain O2 saturation greater than 92% patient currently on room air Routine consult to Trauma surgery for possible tracheostomy under emergent conditions-discussed with Dr. Ortiz Plan for possible emergent intubation if continued airway compromise/ deterioration Bronchodilators every 4 hours scheduled every 2 hours as needed Continue Decadron for 4 mg every 6 hours, continue Unasyn Concern for possible malignancy patient will need in the future as a ultrasound- guided biopsy of [id number] ENT recommended ENT following-Dr. Motley Cardiovascular: Maintain map greater than 65 Normotensive Renal: -- Strict I/Os FEN/GI: Hypokalemia Replete electrolytes per ICU protocol Maintain n.p.o. status at this time patient is at risk for emergent intubation secondary to airway edema Zofran for nausea Famotidine GI prophylaxis Monitor BMP Heme/ID: Leukocytosis-resolved Monitor CBC Continue Unasyn every 6 hours Follow-up blood culture results Endocrine: Glucose monitoring per ICU protocol -- SSI Prophylaxis: GI Prophylaxis Famotidine DVT Prophylaxis -- SCDs Lines: Peripheral IVs providing adequate access. Central line if indicated Dispo: Level 3 follow-up Code Status: Full Discussed Condition With: Dr. Díaz and TELEGRAPH SERVICE CLERK at bedside
[2018-08-07] MEDS: Chlorhexidine Gluconate 2% 1 Pack (2 Cloths) TOPICAL SCH ×2 (10:32)
[2018-08-07] MEDS: Dextrose 5%/NaCl 0.9% Inj 1,000 ML IV.CONT SCH (10:41)
--- NOTE | 2018-08-07 16:14 | P.PNVS ---
Subjective Subjective/Hospital Course: Patient with airway issues Referral received Will be available if emergency or elective tracheostomy is needed Thanks J Objective Vital Signs / I&O: Vital Signs 08/06/18 17:12 08/06/18 19:45 08/06/18 20:00 Temperature 98.2 F Pulse Rate 92 H 85 86 Respiratory Rate 16 25 H 27 H Blood Pressure 118/69 116/77 Pulse Oximetry 96 97 96 08/06/18 20:31 08/06/18 21:00 08/06/18 22:00 Temperature Pulse Rate 82 88 84 Respiratory Rate 18 26 H 20 Blood Pressure 118/70 115/67 Pulse Oximetry 99 96 94 L 08/06/18 23:00 08/07/18 00:00 08/07/18 00:02 Temperature 98.2 F Pulse Rate 79 76 79 Respiratory Rate 24 23 20 Blood Pressure 100/57 L 125/71 Pulse Oximetry 95 97 08/07/18 01:00 08/07/18 02:00 08/07/18 03:00 Temperature 97.7 F Pulse Rate 84 73 69 Respiratory Rate 29 H 16 14 Blood Pressure 120/64 95/54 L 107/57 L Pulse Oximetry 98 93 L 96 08/07/18 03:51 08/07/18 04:00 08/07/18 05:00 Temperature Pulse Rate 89 78 82 Respiratory Rate 16 21 20 Blood Pressure 129/65 107/59 L Pulse Oximetry 100 90 L 08/07/18 06:00 08/07/18 07:00 08/07/18 08:00 Temperature Pulse Rate 79 90 85 Respiratory Rate 16 27 H 22 Blood Pressure 133/62 119/60 131/70 Pulse Oximetry 94 L 95 95 08/07/18 08:45 08/07/18 09:00 08/07/18 10:00 Temperature Pulse Rate 88 92 H 90 Respiratory Rate 18 27 H 23 Blood Pressure 128/69 142/70 H Pulse Oximetry 97 94 L 95 08/07/18 11:00 08/07/18 11:01 08/07/18 11:39 Temperature Pulse Rate 103 H 107 H 101 H Respiratory Rate 42 H 45 H 18 Blood Pressure 126/78 Pulse Oximetry 08/07/18 12:00 08/07/18 13:00 08/07/18 14:00 Temperature Pulse Rate 100 H 101 H 97 H Respiratory Rate 24 23 26 H Blood Pressure 136/67 119/63 127/70 Pulse Oximetry 08/07/18 15:00 08/07/18 15:47 Temperature Pulse Rate 94 H 87 Respiratory Rate 25 H 18 Blood Pressure 128/62 Pulse Oximetry Intake & Output 08/06/18 08/07/18 08/07/18 18:59 06:59 18:59 Intake Total 1104 / 1104 838 / 838 1100 / 1100 Output Total 350 / 350 Balance 1104 / 1104 488 / 488 1100 / 1100 Weight 78.4 kg 62 kg Intake: IV 1104 / 1104 200 / 200 1100 / 1100 D5W/Normal Saline Inj 1,000 ML 1000 / 1000 @ 84 mls/hr IV.CONT .[id number] JAY Rx#:[id number] Unasyn Inj 1,500 MG In NS Inj 200 / 200 100 / 100 100 ML @ 200 mls/hr IV.SIG Q6H JAY Rx#:[id number] Cleocin Inj 600 MG In NS Inj 104 / 104 100 ML @ 200 mls/hr IV.SIG STAT STA Rx#:[id number] NS Inj 1,000 ML @ 1000 mls/hr 1000 / 1000 IV.SIG BOLUS JAY Rx#:[id number] Other 638 / 638 Output: Urine 350 / 350 Laboratory Results - last 24 hr 08/06/18 08/06/18 08/07/18 17:15 18:45 00:27 WBC RBC Hgb Hct MCV MCH MCHC RDW Plt Count MPV Neut % (Auto) Lymph % (Auto) [place] % (Auto) Eos % (Auto) Baso % (Auto) Neut # (Auto) Lymph # (Auto) [place] # (Auto) Eos # (Auto) Baso # (Auto) WBC Differential Differential Comment Sodium Potassium Chloride Carbon Dioxide Anion Gap BUN Creatinine Estimated GFR POC Glucose 165 H Random Glucose Calcium Phosphorus Magnesium Total Bilirubin AST ALT Alkaline Phosphatase Troponin I Total Protein Albumin Urine Color Yellow Urine Clarity Clear Urine pH 6.0 Ur Specific [place] Less/equal 1.005 Urine Protein Negative Urine Glucose (UA) Negative Urine Ketones 15 H Urine Occult Blood Negative Urine Nitrate Negative Urine Bilirubin Small H Urine Ictotest Positive H Urine Urobilinogen 4.0 H Ur Leukocyte Esterase Negative Urine WBC 0-5 Ur Squamous Epith Cells 0-5 Hyaline Casts 11-30 H Granular Casts 4-10 H Micro UA Comment Culture not ind Ur Microscopic Review Microscopic reviewed Urine Culture Comments Culture not ind Nasal Screen MRSA (PCR) Not detected 08/07/18 08/07/18 08/07/18 04:10 04:10 09:57 WBC 5.7 D RBC 4.06 L Hgb 12.7 L D Hct 36.1 L MCV 89.0 MCH 31.2 MCHC 35.1 RDW 15.2 Plt Count 102 L D MPV 8.7 Neut % (Auto) 86.7 H Lymph % (Auto) 9.3 [place] % (Auto) 3.9 Eos % (Auto) 0.0 Baso % (Auto) 0.1 Neut # (Auto) 5.0 Lymph # (Auto) 0.5 L [place] # (Auto) 0.2 Eos # (Auto) 0.0 Baso # (Auto) 0.0 WBC Differential . Differential Comment Auto diff final Sodium 142 Potassium 3.5 Chloride 110 H D Carbon Dioxide 25.8 Anion Gap 6 BUN 17 Creatinine 0.73 Estimated GFR Greater than 89 POC Glucose Random Glucose 177 H Calcium 8.5 Phosphorus 2.3 L Magnesium 2.1 Total Bilirubin 1.4 H AST 22 ALT 40 Alkaline Phosphatase 86 Troponin I Less than 0.02 L Total Protein 7.6 D Albumin 3.0 L D Urine Color Urine Clarity Urine pH Ur Specific [place] Urine Protein Urine Glucose (UA) Urine Ketones Urine Occult Blood Urine Nitrate Urine Bilirubin Urine Ictotest Urine Urobilinogen Ur Leukocyte Esterase Urine WBC Ur Squamous Epith Cells Hyaline Casts Granular Casts Micro UA Comment Ur Microscopic Review Urine Culture Comments Nasal Screen MRSA (PCR) Microbiology 08/06/18 15:30 Aerobic Blood Culture - Preliminary Blood - Peripheral No growth in 1 day Anaerobic Blood Culture - Preliminary No growth in 1 day 08/06/18 15:00 Aerobic Blood Culture - Preliminary Blood - Peripheral No growth in 1 day Anaerobic Blood Culture - Preliminary gram positive rods Impressions Chest X-Ray 08/06/18 14:58 CONCLUSION: 1. No acute abnormality or significant interval change. Soft Tissue Neck CT 08/06/18 15:02 CONCLUSION: 1. Asymmetry with increased soft tissue density in the left tonsillar fossa region. This area should be evaluated for possible mass. 2. Prominent lymph nodes around the upper parotid regions bilaterally being more prominent on the left. 3. Degenerative change in the cervical spine.
[2018-08-07] MEDS ORDERED: Melatonin 5 MG Tablet PO ONE (19:49)
[2018-08-08] MEDS: Ampicillin/Sulbactam Inj 1,500 MG in Sodium Chloride 0.9% Inj 100 ML IV.SIG SCH ×4 (02:30→22:04)
--- NOTE | 2018-08-08 04:32 | XR ---
EXAM DATE: 08/08/2018 4:28 AM EST AGE/SEX: 58 years / Male INDICATIONS: Shortness of breath, possible pulmonary disease. CLINICAL DATA: This is the patient's subsequent encounter. Patient reports that signs and symptoms h ave been present for 3 days and indicates a pain score of 0/10. MEDICAL/SURGICAL HISTORY: None. None. COMPARISON: [facility], CHEST 1V SINGLE AP, 08/06/2018. . FINDINGS: A single AP view of the chest demonstrates the lungs to be symmetrically aerated without evidence of mass, infiltrate or effusion. Calcified granuloma within the left base. The cardiomediastinal contour s are unremarkable. Osseous structures are intact. CONCLUSION: Negative examination. Electronically signed by: Aditya Chandra MD 08/08/2018 4:30 AM EST
[2018-08-08 05:49] LABS: Baso % (Auto) 0.1 % (0.0-2.0); Hematocrit 35.4 % (39.0-51.0); Lymph # (Auto) 0.6 th/mm3 (1.0-4.8); Lymph % (Auto) 10.2 % (9.0-44.0); Mean Corpuscular Volume 91.3 fL (80.0-100.0); Mean Platelet Volume 8.3 fL (7.0-11.0); Mono # (Auto) 0.4 th/mm3 (0.0-0.9); Mono % (Auto) 6.7 % (0.0-8.0); Neut # (Auto) 4.5 th/mm3 (1.8-7.7); Platelet Count 130 th/mm3 (150-450); Red Blood Count 3.88 mil/mm3 (4.50-5.90); Red Cell Distribution Width 15.4 % (11.6-17.2); White Blood Count 5.4 th/mm3 (4.0-11.0)
[2018-08-08 06:08] LABS: Anion Gap 9 meq/L (5-15); Blood Urea Nitrogen 22 mg/dL (7-18); Calcium 8.7 mg/dL (8.5-10.1); Carbon Dioxide 24.3 meq/L (21.0-32.0); Chloride 113 meq/L (98-107); Glomerular Filtration Rate Greater Than 89 mL/min (>89); Glucose,Random 127 mg/dL (74-106); Magnesium 2.5 mg/dL (1.5-2.5); Potassium 3.4 meq/L (3.5-5.1); Sodium 146 meq/L (136-145)
[2018-08-08 06:09] LABS: Phosphorus 2.7 mg/dL (2.5-4.9)
[2018-08-08] MEDS: Chlorhexidine Gluconate 2% 1 Pack (2 Cloths) TOPICAL SCH ×2 (06:47)
[2018-08-08] MEDS: Insulin NovoLIN Regular Correctional Sugar Inj SQ SCH ×5 (06:48→23:36)
[2018-08-08] MEDS: Famotidine PF Inj 20 MG/2 ML Vial IV.PUSH SCH ×2 (08:39→22:04)
--- NOTE | 2018-08-08 10:44 | P.PNCC ---
Subjective Subjective Remarks/Hospital Course: 08/07: Afebrile .Leukocytosis resolved. Patient expresses better control of saliva this morning, however still noted significant airway edema with voice changes. Patient remains n.p.o.. 08/08: Patient tolerated clear liquid diet. Initial formal swallow study yesterday the patient felt. Repeat formal swallow study in progress awaiting results. Patient was noted to have gram-positive rods patient continues on antibiotics leukocytosis is now resolved. Patient still will require ultrasound -guided biopsy will defer to ENT regarding an appointment date. Objective Vital Signs / I&O: Vital Signs 08/07/18 11:00 08/07/18 11:01 08/07/18 11:39 Temperature Pulse Rate 103 H 107 H 101 H Respiratory Rate 42 H 45 H 18 Blood Pressure 126/78 Pulse Oximetry 08/07/18 12:00 08/07/18 13:00 08/07/18 14:00 Temperature Pulse Rate 100 H 101 H 97 H Respiratory Rate 24 23 26 H Blood Pressure 136/67 119/63 127/70 Pulse Oximetry 08/07/18 15:00 08/07/18 15:47 08/07/18 16:00 Temperature Pulse Rate 94 H 87 98 H Respiratory Rate 25 H 18 26 H Blood Pressure 128/62 135/67 Pulse Oximetry 98 08/07/18 17:00 08/07/18 18:00 08/07/18 18:01 Temperature Pulse Rate 99 H 100 H 102 H Respiratory Rate 25 H 44 H 31 H Blood Pressure 146/73 H 147/74 H Pulse Oximetry 95 97 96 08/07/18 19:00 08/07/18 20:00 08/07/18 20:17 Temperature Pulse Rate 105 H 94 H 90 Respiratory Rate 37 H 42 H 16 Blood Pressure 143/73 H 128/72 Pulse Oximetry 95 08/07/18 21:00 08/07/18 22:00 08/07/18 23:00 Temperature Pulse Rate 100 H 92 H 96 H Respiratory Rate 29 H 30 H 38 H Blood Pressure 130/62 134/63 Pulse Oximetry 95 97 92 L 08/07/18 23:01 08/08/18 00:00 08/08/18 01:00 Temperature Pulse Rate 89 79 74 Respiratory Rate 22 16 15 Blood Pressure 110/55 L 135/60 107/53 L Pulse Oximetry 95 93 L 94 L 08/08/18 02:00 08/08/18 02:01 08/08/18 03:00 Temperature Pulse Rate 71 72 80 Respiratory Rate 21 29 H 24 Blood Pressure 128/66 136/73 Pulse Oximetry 95 95 93 L 08/08/18 04:00 08/08/18 04:23 08/08/18 05:00 Temperature 98.7 F Pulse Rate 72 82 83 Respiratory Rate 23 19 23 Blood Pressure 132/72 112/57 L Pulse Oximetry 94 L 93 L 08/08/18 06:00 Temperature Pulse Rate 85 Respiratory Rate 24 Blood Pressure 127/60 Pulse Oximetry 93 L Intake & Output 08/07/18 08/08/18 08/08/18 18:59 06:59 18:59 Intake Total 1200 / 1200 1200 / 1200 Output Total 800 / 800 1000 / 1000 Balance 400 / 400 200 / 200 Weight 61.4 kg Intake: IV 1200 / 1200 1200 / 1200 D5W/Normal Saline Inj 1,000 ML 1000 / 1000 1000 / 1000 @ 84 mls/hr IV.CONT .[id number] [facility] Rx#:[id number] Unasyn Inj 1,500 MG In NS Inj 200 / 200 200 / 200 100 ML @ 200 mls/hr IV.SIG Q6H [facility] Rx#:[id number] Output: Urine 800 / 800 1000 / 1000 Result Diagrams: 08/08/18 04:37 08/08/18 04:37 Objective Remarks: GENERAL: This is a well-developed well-nourished male of average stated age, in no acute distress SKIN: Warm and dry. HEAD: Atraumatic. Normocephalic. EYES: Pupils equal and round. No scleral icterus. No injection or drainage. ENT: No nasal bleeding or discharge. Mucous membranes pink and moist. NECK: Trachea midline. No JVD. Minimal voice change noted. Good voice resonance CARDIOVASCULAR: Normal rate, regular rhythm. RESPIRATORY: No accessory muscle use. Clear to auscultation. Breath sounds equal bilaterally. GASTROINTESTINAL: Abdomen soft, non-tender, nondistended. No guarding. MUSCULOSKELETAL: Extremities without clubbing, cyanosis, or edema. No obvious deformities. NEUROLOGICAL: Awake and alert. RASS 0. No gross focal/sensory deficits. Follows commands in all 4 extremities. Assessment and Plan - Assessment and Plan Plan: Plan by systems: Neurologic: Pain History of alcohol use Neuro checks per ICU protocol Monitor for signs of alcohol withdrawal Seizure precautions Tylenol elixir 650 mg every 6 hours as needed for moderate pain Avoidance of narcotics /sedatives to maintain airway Respiratory: Angioedema Airway compromise Maintain O2 saturation greater than 92% patient currently on room air Routine consult to Trauma surgery for possible tracheostomy under emergent conditions-discussed with Dr. Otriz Noted left lingular and left tonsillar edema significantly decreased, management of secretions Bronchodilators every 4 hours scheduled every 2 hours as needed Continue Decadron for 4 mg every 6 hours, continue Unasyn Concern for possible malignancy patient will need in the future as a ultrasound- guided biopsy of left tonsillar pillar and possibly lymph [id number] ENT recommended ENT following-Dr. Motley Cardiovascular: Maintain map greater than 65 Normotensive Renal: -- Strict I/Os FEN/GI: Hypokalemia Replete electrolytes per ICU protocol Follow-up repeat formal swallow evaluation today dietary recommendations per speech pathology Zofran for nausea Famotidine GI prophylaxis Monitor BMP Heme/ID: Leukocytosis-resolved Bacteremia Monitor CBC Continue Unasyn every 6 hours 08/07- blood culture results-positive Endocrine: Glucose monitoring per ICU protocol -- SSI Prophylaxis: GI Prophylaxis Famotidine DVT Prophylaxis -- SCDs Lines: Peripheral IVs providing adequate access. 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
[2018-08-08] MEDS: Dextrose 5%/NaCl 0.9% Inj 1,000 ML IV.CONT SCH ×2 (10:58)
[2018-08-08] MEDS ORDERED: Melatonin 5 MG Tablet PO PRN (21:33)
[2018-08-09] MEDS: Ampicillin/Sulbactam Inj 1,500 MG in Sodium Chloride 0.9% Inj 100 ML IV.SIG SCH ×4 (02:30→20:54)
[2018-08-09] MEDS: Chlorhexidine Gluconate 2% 1 Pack (2 Cloths) TOPICAL SCH ×2 (04:34)
[2018-08-09 05:09] LABS: Hematocrit 34.6 % (39.0-51.0); Lymph # (Auto) 0.6 th/mm3 (1.0-4.8); Lymph % (Auto) 15.4 % (9.0-44.0); Mean Corpuscular HGB Conc 34.6 % (32.0-36.0); Mean Corpuscular Volume 89.7 fL (80.0-100.0); Mean Platelet Volume 8.1 fL (7.0-11.0); Mono # (Auto) 0.3 th/mm3 (0.0-0.9); Mono % (Auto) 6.6 % (0.0-8.0); Neut # (Auto) 3.1 th/mm3 (1.8-7.7); Platelet Count 140 th/mm3 (150-450); Red Blood Count 3.85 mil/mm3 (4.50-5.90); Red Cell Distribution Width 15.4 % (11.6-17.2)
[2018-08-09 05:19] LABS: Anion Gap 6 meq/L (5-15); Blood Urea Nitrogen 19 mg/dL (7-18); Calcium 8.5 mg/dL (8.5-10.1); Carbon Dioxide 27.5 meq/L (21.0-32.0); Chloride 109 meq/L (98-107); Glomerular Filtration Rate Greater Than 89 mL/min (>89); Glucose,Random 116 mg/dL (74-106); Potassium 4.2 meq/L (3.5-5.1); Sodium 142 meq/L (136-145)
[2018-08-09] MEDS: Insulin NovoLIN Regular Correctional Sugar Inj SQ SCH ×3 (05:58→18:42)
[2018-08-09 07:57] LABS: Platelet Morphology Normal (Normal)
[2018-08-09] MEDS: Famotidine PF Inj 20 MG/2 ML Vial IV.PUSH SCH ×2 (09:25→20:54)
--- NOTE | 2018-08-09 10:46 | P.PN ---
Subjective Interval history: Follow up angioedema 08/09/18-patient seen and examined, no problem with swallowing. Patient states he would like to have US guided biopsy of his neck mass prior to discharge Physical Exam Vital signs: Vital Signs 08/08/18 11:00 08/08/18 11:35 08/08/18 12:00 Temperature Pulse Rate 91 H 88 91 H Respiratory Rate 25 H 18 33 H Blood Pressure 142/68 H Pulse Oximetry 98 94 L 94 L 08/08/18 12:01 08/08/18 13:00 08/08/18 14:00 Temperature Pulse Rate 92 H 81 95 H Respiratory Rate 27 H 25 H 27 H Blood Pressure 151/96 H 132/69 Pulse Oximetry 94 L 96 08/08/18 14:01 08/08/18 15:00 08/08/18 15:47 Temperature Pulse Rate 94 H 86 86 Respiratory Rate 27 H 29 H 16 Blood Pressure 117/57 L 129/64 Pulse Oximetry 08/08/18 16:00 08/08/18 20:00 08/08/18 21:00 Temperature 98.8 F Pulse Rate 92 H 83 94 H Respiratory Rate 30 H 22 26 H Blood Pressure 145/69 H 139/69 Pulse Oximetry 93 L 98 97 08/08/18 22:00 08/08/18 23:00 08/09/18 00:00 Temperature Pulse Rate 85 83 72 Respiratory Rate 22 31 H 34 H Blood Pressure 159/84 H Pulse Oximetry 97 83 L 92 L 08/09/18 02:00 08/09/18 03:00 08/09/18 04:00 Temperature Pulse Rate 67 80 76 Respiratory Rate 28 H 36 H 20 Blood Pressure 143/83 H Pulse Oximetry 95 93 L 94 L 08/09/18 08:00 Temperature Pulse Rate 74 Respiratory Rate Blood Pressure Pulse Oximetry 94 L Intake & Output 08/08/18 08/09/18 08/09/18 18:59 06:59 18:59 Intake Total 900 / 900 750 / 750 Output Total 1100 / 1100 600 / 600 Balance -200 / -200 150 / 150 Intake: IV 900 / 900 500 / 500 D5W/Normal Saline Inj 1,000 ML 800 / 800 200 / 200 @ 84 mls/hr IV.CONT .[id number] [facility] Rx#:[id number] Unasyn Inj 1,500 MG In NS Inj 100 / 100 300 / 300 100 ML @ 200 mls/hr IV.SIG Q6H [facility] Rx#:[id number] Oral 250 / 250 Output: Urine 1100 / 1100 600 / 600 Other: Date of Last Bowel Movement 08/08/18 08/09/18 08/09/18 # Bowel Movements 1 1 Narrative: GENERAL: NAD SKIN: Warm and dry. HEAD: Atraumatic. Normocephalic. EYES: Pupils equal and round. No scleral icterus. No injection or drainage. ENT: No nasal bleeding or discharge. Mucous membranes pink and moist. NECK: Trachea midline. No JVD. CARDIOVASCULAR: Regular rate and rhythm. RESPIRATORY: No accessory muscle use. Clear to auscultation. Breath sounds equal bilaterally. GASTROINTESTINAL: Abdomen soft, non-tender, nondistended. Hepatic and splenic margins not palpable. MUSCULOSKELETAL: Extremities without clubbing, cyanosis, or edema. No obvious deformities. NEUROLOGICAL: Awake and alert. No obvious cranial nerve deficits. Motor grossly within normal limits. Five out of 5 muscle strength in the arms and legs. Normal speech. PSYCHIATRIC: Appropriate mood and affect; insight and judgment normal. Results - Labs CBC & Chem 7: 08/09/18 03:31 08/09/18 03:37 Laboratory Results - last 24 hr 08/08/18 08/09/18 08/09/18 23:33 03:31 03:37 WBC 4.0 RBC 3.85 L Hgb 12.0 L Hct 34.6 L MCV 89.7 MCH 31.0 MCHC 34.6 RDW 15.4 Plt Count 140 L MPV 8.1 Prelim Diff (Auto) Slide review pending Neut % (Auto) 78.0 H Lymph % (Auto) 15.4 Bland % (Auto) 6.6 Eos % (Auto) 0.0 Baso % (Auto) 0.0 Neut # (Auto) 3.1 Lymph # (Auto) 0.6 L Bland # (Auto) 0.3 Eos # (Auto) 0.0 Baso # (Auto) 0.0 WBC Differential . Diff Scan Auto diff confirmed Differential Comment . Platelet Estimate Low L Platelet Morphology Normal Sodium 142 Potassium 4.2 D Chloride 109 H Carbon Dioxide 27.5 Anion Gap 6 BUN 19 H Creatinine 0.60 Estimated GFR Greater than 89 POC Glucose 137 H Random Glucose 116 H Calcium 8.5 Microbiology 08/06/18 15:30 Blood - Peripheral Aerobic Blood Culture - Preliminary No growth in 2 days 08/06/18 15:30 Blood - Peripheral Anaerobic Blood Culture - Preliminary No growth in 2 days 08/06/18 15:00 Blood - Peripheral Aerobic Blood Culture - Preliminary No growth in 2 days 08/06/18 15:00 Blood - Peripheral Anaerobic Blood Culture - Final Bacillus species not anthracis Assessment and Plan - Plan 58 years old man with Pain History of alcohol use Neuro checks per ICU protocol Monitor for signs of alcohol withdrawal Seizure precautions Tylenol elixir 650 mg every 6 hours as needed for moderate pain Avoidance of narcotics /sedatives to maintain airway Angioedema Airway compromise Maintain O2 saturation greater than 92% patient currently on room air Routine consult to Trauma surgery for possible tracheostomy under emergent conditions- Patient was seen by Dr. Ortiz Noted left lingular and left tonsillar edema significantly decreased, management of secretions Bronchodilators every 4 hours scheduled every 2 hours as needed Continue Decadron for 4 mg every 6 hours, continue Unasyn Concern for possible malignancy patient will need in the future as a ultrasound- guided biopsy of left tonsillar pillar and possibly lymph [id number] ENT recommended--ENT following-Dr. Motley Hypokalemia-Resolved Leukocytosis-resolved Bacteremia Continue Unasyn every 6 hours 08/07- blood culture results-positive Repeat blood culture 08/09/18 -- SSI Prophylaxis: GI Prophylaxis Famotidine DVT Prophylaxis -- SCDs
[2018-08-10] MEDS: Insulin NovoLIN Regular Correctional Sugar Inj SQ SCH ×4 (00:18→17:28)
[2018-08-10] MEDS: Ampicillin/Sulbactam Inj 1,500 MG in Sodium Chloride 0.9% Inj 100 ML IV.SIG SCH ×4 (03:59→20:17)
[2018-08-10] MEDS: Chlorhexidine Gluconate 2% 1 Pack (2 Cloths) TOPICAL SCH ×2 (04:53)
[2018-08-10] MEDS: Famotidine PF Inj 20 MG/2 ML Vial IV.PUSH SCH (09:33)
--- NOTE | 2018-08-10 10:41 | P.PN ---
Subjective Interval history: Follow up angioedema 08/09/18-patient seen and examined, no problem with swallowing. Patient states he would like to have US guided biopsy of his neck mass prior to discharge 08/10/18-patient seen and examined, complain this a.m. of sore throat as well as shortness of breath while eating eggs for breakfast. Physical Exam Vital signs: Vital Signs 08/09/18 12:00 08/09/18 16:00 08/09/18 20:00 Temperature 97.9 F 97.7 F 97.8 F Pulse Rate 80 78 74 Respiratory Rate 23 18 20 Blood Pressure 126/80 153/86 H 179/91 H Pulse Oximetry 95 95 96 08/09/18 21:32 08/09/18 22:07 08/10/18 00:00 Temperature 97.4 F L Pulse Rate 68 79 69 Respiratory Rate 16 17 Blood Pressure 136/14 L 152/74 H Pulse Oximetry 98 08/10/18 08:00 08/10/18 10:13 Temperature 97.2 F L Pulse Rate 66 85 Respiratory Rate 18 18 Blood Pressure 135/79 Pulse Oximetry 97 Intake & Output 08/09/18 08/10/18 08/10/18 18:59 06:59 18:59 Intake Total 600 / 600 200 / 200 Balance 600 / 600 200 / 200 Weight 61.2 kg Intake: IV 200 / 200 200 / 200 Unasyn Inj 1,500 MG In NS Inj 200 / 200 200 / 200 100 ML @ 200 mls/hr IV.SIG Q6H [facility] Rx#:[id number] Oral 400 / 400 Other: # Voids 2 3 Date of Last Bowel Movement 08/09/18 Narrative: GENERAL: NAD SKIN: Warm and dry. HEAD: Atraumatic. Normocephalic. EYES: Pupils equal and round. No scleral icterus. No injection or drainage. ENT: No nasal bleeding or discharge. Mucous membranes pink and moist. NECK: Trachea midline. No JVD. CARDIOVASCULAR: Regular rate and rhythm. RESPIRATORY: No accessory muscle use. Clear to auscultation. Breath sounds equal bilaterally. GASTROINTESTINAL: Abdomen soft, non-tender, nondistended. Hepatic and splenic margins not palpable. MUSCULOSKELETAL: Extremities without clubbing, cyanosis, or edema. No obvious deformities. NEUROLOGICAL: Awake and alert. No obvious cranial nerve deficits. Motor grossly within normal limits. Five out of 5 muscle strength in the arms and legs. Normal speech. PSYCHIATRIC: Appropriate mood and affect; insight and judgment normal. Results - Labs CBC & Chem 7: 08/09/18 03:31 08/09/18 03:37 Laboratory Results - last 24 hr 08/09/18 08/09/18 08/10/18 12:41 17:09 00:06 POC Glucose 101 106 170 H 08/10/18 06:07 POC Glucose 111 H Microbiology 08/06/18 15:30 Blood - Peripheral Aerobic Blood Culture - Preliminary No growth in 3 days 08/06/18 15:30 Blood - Peripheral Anaerobic Blood Culture - Preliminary No growth in 3 days 08/06/18 15:00 Blood - Peripheral Aerobic Blood Culture - Preliminary No growth in 3 days 08/06/18 15:00 Blood - Peripheral Anaerobic Blood Culture - Final Bacillus species not anthracis Assessment and Plan - Plan 58 years old man with Pain History of alcohol use Neuro checks per ICU protocol Monitor for signs of alcohol withdrawal Seizure precautions Tylenol elixir 650 mg every 6 hours as needed for moderate pain Avoidance of narcotics /sedatives to maintain airway Angioedema Airway compromise Questionable neck mass? Maintain O2 saturation greater than 92% patient currently on room air Patient was seen by Dr. Ortiz for possible tracheostomy placement Bronchodilators every 4 hours scheduled every 2 hours as needed Continue Decadron for 4 mg every 6 hours, continue Unasyn Concern for possible malignancy patient will need in the future as a ultrasound- guided biopsy of left tonsillar pillar and possibly lymph [id number] ENT recommended--ENT following-Dr. Motley Hypokalemia-Resolved Leukocytosis-resolved Bacteremia Continue Unasyn every 6 hours 08/07- blood culture results-positive Repeat blood culture 08/09/18 NTD -- SSI Prophylaxis: GI Prophylaxis Famotidine DVT Prophylaxis -- SCDs
[2018-08-10] MEDS: Acetaminophen 325 MG Tablet PO PRN (20:16)
[2018-08-10] MEDS: Famotidine 20 MG Tablet PO SCH (20:16)
[2018-08-11] MEDS: Insulin NovoLIN Regular Correctional Sugar Inj SQ SCH ×4 (00:45→17:41)
[2018-08-11] MEDS: Ampicillin/Sulbactam Inj 1,500 MG in Sodium Chloride 0.9% Inj 100 ML IV.SIG SCH ×4 (02:50→22:00)
[2018-08-11] MEDS: Chlorhexidine Gluconate 2% 1 Pack (2 Cloths) TOPICAL SCH ×2 (04:38)
[2018-08-11 07:21] LABS: Baso % (Auto) 0.2 % (0.0-2.0); Eos % (Auto) 0.6 % (0.0-4.0); Hematocrit 39.9 % (39.0-51.0); Hemoglobin 13.9 gm/dL (13.0-17.0); Lymph # (Auto) 0.7 th/mm3 (1.0-4.8); Lymph % (Auto) 10.3 % (9.0-44.0); Mean Corpuscular HGB Conc 34.7 % (32.0-36.0); Mean Corpuscular Hemoglobin 31.1 pg (27.0-34.0); Mean Corpuscular Volume 89.6 fL (80.0-100.0); Mean Platelet Volume 8.4 fL (7.0-11.0); Mono # (Auto) 0.6 th/mm3 (0.0-0.9); Mono % (Auto) 8.6 % (0.0-8.0); Neut # (Auto) 5.7 th/mm3 (1.8-7.7); Neut % (Auto) 80.3 % (16.0-70.0); Platelet Count 174 th/mm3 (150-450); Red Blood Count 4.46 mil/mm3 (4.50-5.90); Red Cell Distribution Width 15.1 % (11.6-17.2)
[2018-08-11 07:35] LABS: Alanine Aminotransferase 222 U/L (12-78); Albumin 3.1 g/dL (3.4-5.0); Anion Gap 8 meq/L (5-15); Aspartate Aminotransferase 125 U/L (15-37); Blood Urea Nitrogen 15 mg/dL (7-18); Calcium 9.2 mg/dL (8.5-10.1); Carbon Dioxide 27.7 meq/L (21.0-32.0); Chloride 105 meq/L (98-107); Glomerular Filtration Rate Greater Than 89 mL/min (>89); Glucose,Random 117 mg/dL (74-106); Sodium 141 meq/L (136-145)
[2018-08-11 07:38] LABS: Alkaline Phosphatase 87 U/L (45-117); Total Protein 7.6 g/dL (6.4-8.2)
[2018-08-11] MEDS: Famotidine 20 MG Tablet PO SCH ×2 (09:14→22:37)
--- NOTE | 2018-08-11 11:34 | P.PN ---
Subjective Interval history: Follow up angioedema 08/09/18-patient seen and examined, no problem with swallowing. Patient states he would like to have US guided biopsy of his neck mass prior to discharge 08/10/18-patient seen and examined, complain this a.m. of sore throat as well as shortness of breath while eating eggs for breakfast. 08/11/18-patient seen and examined, still with some sore throat irritation however reports an improvement of shortness of breath. Physical Exam Vital signs: Vital Signs 08/10/18 12:00 08/10/18 12:12 08/10/18 15:38 Temperature 97.7 F Pulse Rate 77 70 70 Respiratory Rate 18 18 18 Blood Pressure 122/68 Pulse Oximetry 94 L 08/10/18 16:00 08/10/18 19:42 08/10/18 20:00 Temperature 98.0 F 97.4 F L Pulse Rate 76 76 77 Respiratory Rate 16 16 17 Blood Pressure 129/73 149/63 H Pulse Oximetry 96 95 08/11/18 00:00 08/11/18 03:15 08/11/18 08:00 Temperature 97.6 F 97.5 F L 97.3 F L Pulse Rate 78 72 68 Respiratory Rate 16 17 20 Blood Pressure 120/71 129/77 151/83 H Pulse Oximetry 95 96 97 Intake & Output 08/10/18 08/11/18 08/11/18 18:59 06:59 18:59 Intake Total 200 / 200 400 / 400 Balance 200 / 200 400 / 400 Weight 81 kg Intake: IV 200 / 200 200 / 200 Unasyn Inj 1,500 MG In NS Inj 200 / 200 200 / 200 100 ML @ 200 mls/hr IV.SIG Q6H [facility] Rx#:[id number] Other 200 / 200 Other: Other Intake Source Saline Solution # Voids 4 3 Date of Last Bowel Movement 08/09/18 08/11/18 Narrative: GENERAL: NAD SKIN: Warm and dry. HEAD: Atraumatic. Normocephalic. EYES: Pupils equal and round. No scleral icterus. No injection or drainage. ENT: No nasal bleeding or discharge. Mucous membranes pink and moist. NECK: Trachea midline. No JVD. CARDIOVASCULAR: Regular rate and rhythm. RESPIRATORY: No accessory muscle use. Clear to auscultation. Breath sounds equal bilaterally. GASTROINTESTINAL: Abdomen soft, non-tender, nondistended. Hepatic and splenic margins not palpable. MUSCULOSKELETAL: Extremities without clubbing, cyanosis, or edema. No obvious deformities. NEUROLOGICAL: Awake and alert. No obvious cranial nerve deficits. Motor grossly within normal limits. Five out of 5 muscle strength in the arms and legs. Normal speech. PSYCHIATRIC: Appropriate mood and affect; insight and judgment normal. Results - Labs CBC & Chem 7: 08/11/18 06:08 08/11/18 06:08 Laboratory Results - last 24 hr 08/10/18 08/10/18 08/11/18 12:14 17:27 00:37 WBC RBC Hgb Hct MCV MCH MCHC RDW Plt Count MPV Neut % (Auto) Lymph % (Auto) Wirt % (Auto) Eos % (Auto) Baso % (Auto) Neut # (Auto) Lymph # (Auto) Wirt # (Auto) Eos # (Auto) Baso # (Auto) WBC Differential Differential Comment Sodium Potassium Chloride Carbon Dioxide Anion Gap BUN Creatinine Estimated GFR POC Glucose 109 127 H 160 H Random Glucose Calcium Total Bilirubin AST ALT Alkaline Phosphatase Total Protein Albumin 08/11/18 08/11/18 08/11/18 06:06 06:08 06:08 WBC 7.0 RBC 4.46 L Hgb 13.9 Hct 39.9 MCV 89.6 MCH 31.1 MCHC 34.7 RDW 15.1 Plt Count 174 MPV 8.4 Neut % (Auto) 80.3 H Lymph % (Auto) 10.3 Wirt % (Auto) 8.6 H Eos % (Auto) 0.6 Baso % (Auto) 0.2 Neut # (Auto) 5.7 Lymph # (Auto) 0.7 L Wirt # (Auto) 0.6 Eos # (Auto) 0.0 Baso # (Auto) 0.0 WBC Differential . Differential Comment Auto diff final Sodium 141 Potassium 4.0 Chloride 105 Carbon Dioxide 27.7 Anion Gap 8 BUN 15 Creatinine 0.65 Estimated GFR Greater than 89 POC Glucose 113 H Random Glucose 117 H Calcium 9.2 Total Bilirubin 0.8 AST 125 H ALT 222 H Alkaline Phosphatase 87 Total Protein 7.6 Albumin 3.1 L Microbiology 08/09/18 11:02 Blood - Peripheral Aerobic Blood Culture - Preliminary No growth in 2 days 08/09/18 11:02 Blood - Peripheral Anaerobic Blood Culture - Preliminary No growth in 2 days 08/09/18 10:56 Blood - Peripheral Aerobic Blood Culture - Preliminary No growth in 2 days 08/09/18 10:56 Blood - Peripheral Anaerobic Blood Culture - Preliminary No growth in 2 days 08/06/18 15:30 Blood - Peripheral Aerobic Blood Culture - Final No growth in 5 days 08/06/18 15:30 Blood - Peripheral Anaerobic Blood Culture - Final No growth in 5 days 08/06/18 15:00 Blood - Peripheral Aerobic Blood Culture - Final No growth in 5 days 08/06/18 15:00 Blood - Peripheral Anaerobic Blood Culture - Final Bacillus species not anthracis Assessment and Plan - Plan 58 years old man with Pain History of alcohol use Seizure precautions Tylenol elixir 650 mg every 6 hours as needed for moderate pain Avoidance of narcotics /sedatives to maintain airway Angioedema Airway compromise Questionable neck mass? Maintain O2 saturation greater than 92% patient currently on room air Patient was seen by Dr. Ortiz for possible tracheostomy placement Bronchodilators every 4 hours scheduled every 2 hours as needed Continue Decadron for 4 mg every 6 hours, continue Unasyn Concern for possible malignancy patient will need in the future as a ultrasound- guided biopsy of left tonsillar pillar and possibly lymph node- ENT following-Dr. Motley Hypokalemia-Resolved Leukocytosis-resolved Bacteremia Continue Unasyn every 6 hours 08/07- blood culture results-positive Repeat blood culture 08/09/18 NTD -- SSI Prophylaxis: GI Prophylaxis Famotidine DVT Prophylaxis -- SCDs
[2018-08-11] MEDS: Acetaminophen 325 MG Tablet PO PRN (22:43)
[2018-08-12] MEDS: Insulin NovoLIN Regular Correctional Sugar Inj SQ SCH ×4 (00:51→18:08)
[2018-08-12] MEDS: Ampicillin/Sulbactam Inj 1,500 MG in Sodium Chloride 0.9% Inj 100 ML IV.SIG SCH ×4 (03:40→21:08)
[2018-08-12] MEDS: Famotidine 20 MG Tablet PO SCH ×2 (10:07→21:09)
[2018-08-12] MEDS: Acetaminophen 325 MG Tablet PO PRN ×2 (10:12→18:09)
--- NOTE | 2018-08-12 10:31 | P.PN ---
Subjective Interval history: Follow up angioedema 08/09/18-patient seen and examined, no problem with swallowing. Patient states he would like to have US guided biopsy of his neck mass prior to discharge 08/10/18-patient seen and examined, complain this a.m. of sore throat as well as shortness of breath while eating eggs for breakfast. 08/11/18-patient seen and examined, still with some sore throat irritation however reports an improvement of shortness of breath. 08/12/18-patient seen and examined, reports significant improvement of swallowing and denies any throat irritation today. Physical Exam Vital signs: Vital Signs 08/11/18 12:00 08/11/18 16:00 08/11/18 19:10 Temperature 97.6 F 97.7 F 97.6 F Pulse Rate 82 83 79 Respiratory Rate 19 18 19 Blood Pressure 130/73 151/85 H 136/87 Pulse Oximetry 95 95 95 08/12/18 00:00 08/12/18 04:00 08/12/18 08:05 Temperature 97.7 F 97.4 F L Pulse Rate 75 63 Respiratory Rate 17 16 Blood Pressure 132/79 150/80 H Pulse Oximetry 95 98 Intake & Output 08/11/18 08/12/18 08/12/18 18:59 06:59 18:59 Intake Total 200 / 200 200 / 200 Balance 200 / 200 200 / 200 Weight 81.2 kg Intake: IV 200 / 200 200 / 200 Unasyn Inj 1,500 MG In NS Inj 200 / 200 200 / 200 100 ML @ 200 mls/hr IV.SIG Q6H [facility] Rx#:[id number] Other: # Voids 4 Date of Last Bowel Movement 08/11/18 08/11/18 # Bowel Movements 1 Narrative: GENERAL: NAD SKIN: Warm and dry. HEAD: Atraumatic. Normocephalic. EYES: Pupils equal and round. No scleral icterus. No injection or drainage. ENT: No nasal bleeding or discharge. Mucous membranes pink and moist. NECK: Trachea midline. No JVD. CARDIOVASCULAR: Regular rate and rhythm. RESPIRATORY: No accessory muscle use. Clear to auscultation. Breath sounds equal bilaterally. GASTROINTESTINAL: Abdomen soft, non-tender, nondistended. Hepatic and splenic margins not palpable. MUSCULOSKELETAL: Extremities without clubbing, cyanosis, or edema. No obvious deformities. NEUROLOGICAL: Awake and alert. No obvious cranial nerve deficits. Motor grossly within normal limits. Five out of 5 muscle strength in the arms and legs. Normal speech. PSYCHIATRIC: Appropriate mood and affect; insight and judgment normal. Results - Labs CBC & Chem 7: 08/11/18 06:08 08/11/18 06:08 Laboratory Results - last 24 hr 08/11/18 08/11/18 08/12/18 12:34 17:22 05:33 POC Glucose 117 H 176 H 129 H Microbiology 08/09/18 11:02 Blood - Peripheral Aerobic Blood Culture - Preliminary No growth in 2 days 08/09/18 11:02 Blood - Peripheral Anaerobic Blood Culture - Preliminary No growth in 2 days 08/09/18 10:56 Blood - Peripheral Aerobic Blood Culture - Preliminary No growth in 2 days 08/09/18 10:56 Blood - Peripheral Anaerobic Blood Culture - Preliminary No growth in 2 days 08/06/18 15:30 Blood - Peripheral Aerobic Blood Culture - Final No growth in 5 days 08/06/18 15:30 Blood - Peripheral Anaerobic Blood Culture - Final No growth in 5 days 08/06/18 15:00 Blood - Peripheral Aerobic Blood Culture - Final No growth in 5 days 08/06/18 15:00 Blood - Peripheral Anaerobic Blood Culture - Final Bacillus species not anthracis Assessment and Plan - Plan 58 years old man with Pain History of alcohol use Seizure precautions Tylenol elixir 650 mg every 6 hours as needed for moderate pain Avoidance of narcotics /sedatives to maintain airway Angioedema-improving Airway compromise Questionable neck mass? Maintain O2 saturation greater than 92% patient currently on room air Patient was seen by Dr. Ortiz for possible tracheostomy placement Bronchodilators every 4 hours scheduled every 2 hours as needed Continue Decadron for 4 mg every 6 hours, continue Unasyn Concern for possible malignancy patient will need in the future as a ultrasound- guided biopsy of left tonsillar pillar and possibly lymph node- ENT following-Dr. Motley. Awaiting for further evaluation and recommendation from ENT today August 12, 2018 Hypokalemia-Resolved Leukocytosis-resolved Bacteremia Continue Unasyn every 6 hours 08/07- blood culture results-positive, likely contaminant Repeat blood culture 08/09/18 NTD -- SSI Prophylaxis: GI Prophylaxis Famotidine DVT Prophylaxis -- SCDs
[2018-08-13] MEDS: Insulin NovoLIN Regular Correctional Sugar Inj SQ SCH ×2 (01:18→06:20)
[2018-08-13] MEDS: Ampicillin/Sulbactam Inj 1,500 MG in Sodium Chloride 0.9% Inj 100 ML IV.SIG SCH ×2 (03:57→09:12)
[2018-08-13] MEDS: Famotidine 20 MG Tablet PO SCH (09:13)
--- NOTE | 2018-08-13 09:55 | P.PN ---
Subjective Interval history: Follow up angioedema 08/09/18-patient seen and examined, no problem with swallowing. Patient states he would like to have US guided biopsy of his neck mass prior to discharge 08/10/18-patient seen and examined, complain this a.m. of sore throat as well as shortness of breath while eating eggs for breakfast. 08/11/18-patient seen and examined, still with some sore throat irritation however reports an improvement of shortness of breath. 08/12/18-patient seen and examined, reports significant improvement of swallowing and denies any throat irritation today. 08/13/18-patient seen and examined, only complaint of slight hoarseness otherwise stable. State he is swallowing much better without any difficulty. Physical Exam Vital signs: Vital Signs 08/12/18 11:45 08/12/18 15:15 08/12/18 20:00 Temperature 97.8 F 97.7 F 97.5 F L Pulse Rate 71 75 74 Respiratory Rate 16 16 18 Blood Pressure 125/74 119/68 148/79 H Pulse Oximetry 98 98 97 08/12/18 23:49 08/13/18 04:27 08/13/18 08:00 Temperature 97.3 F L 97.8 F 98.4 F Pulse Rate 74 65 75 Respiratory Rate 17 18 18 Blood Pressure 137/79 131/77 128/76 Pulse Oximetry 97 96 96 Intake & Output 08/12/18 08/13/18 08/13/18 18:59 06:59 18:59 Intake Total 1400 / 1400 1160 / 1160 Balance 1400 / 1400 1160 / 1160 Weight 81.2 kg Intake: IV 200 / 200 200 / 200 Unasyn Inj 1,500 MG In NS Inj 200 / 200 200 / 200 100 ML @ 200 mls/hr IV.SIG Q6H JAY Rx#:[id number] Oral 1200 / 1200 960 / 960 Other: # Voids 4 5 Date of Last Bowel Movement 08/11/18 08/11/18 Narrative: GENERAL: NAD SKIN: Warm and dry. HEAD: Atraumatic. Normocephalic. EYES: Pupils equal and round. No scleral icterus. No injection or drainage. ENT: No nasal bleeding or discharge. Mucous membranes pink and moist. NECK: Trachea midline. No JVD. CARDIOVASCULAR: Regular rate and rhythm. RESPIRATORY: No accessory muscle use. Clear to auscultation. Breath sounds equal bilaterally. GASTROINTESTINAL: Abdomen soft, non-tender, nondistended. Hepatic and splenic margins not palpable. MUSCULOSKELETAL: Extremities without clubbing, cyanosis, or edema. No obvious deformities. NEUROLOGICAL: Awake and alert. No obvious cranial nerve deficits. Motor grossly within normal limits. Five out of 5 muscle strength in the arms and legs. Normal speech. PSYCHIATRIC: Appropriate mood and affect; insight and judgment normal. Results - Labs CBC & Chem 7: 08/11/18 06:08 08/11/18 06:08 Laboratory Results - last 24 hr 08/12/18 08/12/18 08/13/18 12:46 18:08 00:16 POC Glucose 109 184 H 132 H 08/13/18 06:17 POC Glucose 119 H Microbiology 08/09/18 11:02 Blood - Peripheral Aerobic Blood Culture - Preliminary No growth in 3 days 08/09/18 11:02 Blood - Peripheral Anaerobic Blood Culture - Preliminary No growth in 3 days 08/09/18 10:56 Blood - Peripheral Aerobic Blood Culture - Preliminary No growth in 3 days 08/09/18 10:56 Blood - Peripheral Anaerobic Blood Culture - Preliminary No growth in 3 days - Procedures None Assessment and Plan - Plan 58 years old man with Pain History of alcohol use Seizure precautions Tylenol elixir 650 mg every 6 hours as needed for moderate pain Avoidance of narcotics /sedatives to maintain airway Angioedema-improving Airway compromise Questionable neck mass? Maintain O2 saturation greater than 92% patient currently on room air Patient was seen by Dr. Ortiz for possible tracheostomy placement Bronchodilators every 4 hours scheduled every 2 hours as needed Continue Decadron for 4 mg every 6 hours, continue Unasyn Concern for possible malignancy patient will need in the future as a ultrasound- guided biopsy of left tonsillar pillar and possibly lymph node- ENT following-Dr. Motley. Patient will be discharged and follow outpatient with Dr. Motley in 1 week Hypokalemia-Resolved Leukocytosis-resolved Bacteremia Continue Unasyn every 6 hours 08/07- blood culture results-positive, likely contaminant Repeat blood culture 08/09/18 NTD -- SSI Prophylaxis: GI Prophylaxis Famotidine DVT Prophylaxis -- SCDs
[2018-08-13] MEDS: Acetaminophen 325 MG Tablet PO PRN (10:00)
--- NOTE | 2018-08-13 10:03 | P.DS ---
Date of admission: 08/06/18 17:15 Primary care physician: No Primary Care Physician Brief History from admission: The patient is a 58-year-old, without significant past medical history who [facility] presented [facility] with sore throat that started on Sunday and progressively worsened. The patient took NyQuil without any effects. He also noticed swelling of the tongue, which started Sunday, and voice changes. He also reports shortness of breath and wheezing associated with his symptoms. He is not on any medications at home. He denies any exposure to sick contacts. He denies any chest pain, orthopnea, PND, or edema in lower extremities. Also denies any nausea, vomiting or abdominal pain. The patient was given Cefdinir. He was noted to have mild drooling and was unable to swallow his saliva due to swelling of his tongue. A chest x-ray was obtained, which showed no acute abnormalities. He also had a soft tissue neck CT which showed asymmetry with increased soft tissue density in the left tonsillar fossa region and prominent lymph nodes around the upper parotid regions, in addition to degenerative changes in the cervical spine. There is no evidence of any fever; however, he had a white count of 15.8. The patient was transferred to [facility]. When seen, he was on room air oxygen. His current blood pressure is 114/71 with a pulse of 84. DS: Summary Hospital Course: While in the hospital, patient was treated for: Pain History of alcohol use Seizure precautions Tylenol elixir 650 mg every 6 hours as needed for moderate pain Avoidance of narcotics /sedatives to maintain airway Angioedema-improving Airway compromise Questionable neck mass? Maintain O2 saturation greater than 92% patient currently on room air Patient was seen by Dr. Ortiz for possible tracheostomy placement Bronchodilators every 4 hours scheduled every 2 hours as needed He was treated with Decadron for 4 mg every 6 hours and Unasyn. Will be discharged home on p.o. prednisone and continue oral antibiotic Concern for possible malignancy patient will need in the future as a ultrasound- guided biopsy of left tonsillar pillar and possibly lymph node- ENT following-Dr. Motley. Patient will be discharged and follow outpatient with Dr. Motley in 1 week Hypokalemia-Resolved Leukocytosis-resolved Bacteremia He was treated with Unasyn every 6 hours 08/07- blood culture results-positive, likely contaminant Repeat blood culture 08/09/18 NTD times 4 days prior to discharge -- SSI Prophylaxis: GI Prophylaxis Famotidine DVT Prophylaxis -- SCDs - Time Spent with Patient Total time spent providing and/or coordinating discharge services: Less than 30 minutes - Quality: VTE Deep Vein Thrombosis/Pulmonary Embolism Present on Admission: No Exam Vital signs: Vital Signs 08/12/18 11:45 08/12/18 15:15 08/12/18 20:00 Temperature 97.8 F 97.7 F 97.5 F L Pulse Rate 71 75 74 Respiratory Rate 16 16 18 Blood Pressure 125/74 119/68 148/79 H Pulse Oximetry 98 98 97 08/12/18 23:49 08/13/18 04:27 08/13/18 08:00 Temperature 97.3 F L 97.8 F 98.4 F Pulse Rate 74 65 75 Respiratory Rate 17 18 18 Blood Pressure 137/79 131/77 128/76 Pulse Oximetry 97 96 96 Intake & Output 08/12/18 08/13/18 08/13/18 18:59 06:59 18:59 Intake Total 1400 / 1400 1160 / 1160 Balance 1400 / 1400 1160 / 1160 Weight 81.2 kg Intake: IV 200 / 200 200 / 200 Unasyn Inj 1,500 MG In NS Inj 200 / 200 200 / 200 100 ML @ 200 mls/hr IV.SIG Q6H JAY Rx#:[id number] Oral 1200 / 1200 960 / 960 Other: # Voids 4 5 Date of Last Bowel Movement 08/11/18 08/11/18 Narrative: GENERAL: NAD SKIN: Warm and dry. HEAD: Atraumatic. Normocephalic. EYES: Pupils equal and round. No scleral icterus. No injection or drainage. ENT: No nasal bleeding or discharge. Mucous membranes pink and moist. NECK: Trachea midline. No JVD. CARDIOVASCULAR: Regular rate and rhythm. RESPIRATORY: No accessory muscle use. Clear to auscultation. Breath sounds equal bilaterally. GASTROINTESTINAL: Abdomen soft, non-tender, nondistended. Hepatic and splenic margins not palpable. MUSCULOSKELETAL: Extremities without clubbing, cyanosis, or edema. No obvious deformities. NEUROLOGICAL: Awake and alert. No obvious cranial nerve deficits. Motor grossly within normal limits. Five out of 5 muscle strength in the arms and legs. Normal speech. PSYCHIATRIC: Appropriate mood and affect; insight and judgment normal. Results Procedures completed during hospitalization: None Labs on day of discharge: Labs from last 24 hours 08/13/18 08/13/18 08/12/18 06:17 00:16 18:08 POC Glucose 119 H 132 H 184 H 08/12/18 12:46 POC Glucose 109 Preliminary micro results at discharge 08/09/18 11:02 Aerobic Blood Culture - Preliminary Blood - Peripheral No growth in 3 days Anaerobic Blood Culture - Preliminary No growth in 3 days 08/09/18 10:56 Aerobic Blood Culture - Preliminary Blood - Peripheral No growth in 3 days Anaerobic Blood Culture - Preliminary No growth in 3 days - Impressions ITS Impressions Soft Tissue Neck CT 08/06/18 15:02 CONCLUSION: 1. Asymmetry with increased soft tissue density in the left tonsillar fossa region. This area should be evaluated for possible mass. 2. Prominent lymph nodes around the upper parotid regions bilaterally being more prominent on the left. 3. Degenerative change in the cervical spine. Chest X-Ray 08/08/18 04:00 CONCLUSION: Negative examination. Discharge Plan - Discharge Disposition Patient Disposition: 01 Discharge Home - Discharge Condition Condition: Fair - Discharge Order Discharge Orders: Discharge Order (Routine); Ordered 08/13/18 Ordered By: Vinh Gr ED Use Only Admit Order (Routine); Ordered 08/06/18 Ordered By: Michael Sanchez - Physicians Team Primary Care Provider: Primary Care Emeterioi,Kerry Attending Provider: Vinh Gr Other Providers: Ramirez Motley MD ; Pari Díaz MD
== END 2018-08-13 11:33 | disposition home or self-care (01) ==
LOC: PHED 14:47 → PHEDH 17:15 → HIMC 18:40 → N06 08-09 14:20
PROVIDERS: ADMIT Hospitalist; ATTEND Hospitalist